=== PATIENT | male | born 1930 | race Caucasian/White ===

== ENCOUNTER 2017-11-14 22:10 | Inpatient (IN) ==
[2017-11-14 22:37] LABS: Basophils % 0.4 %; Eosinophils % 0.1 %; Hematocrit 40.6 % (37.5-50.1); Immature Granulocytes % 2.1 % (0-4); Lymphocytes # 0.4 K/mcL (0.6-4.6); Lymphocytes % 4.1 %; Mean Corpuscular Hemoglobin 26.3 pg (28.0-33.3); Mean Platelet Volume 9.3 fL (9.4-12.4); Monocytes # 0.6 K/mcL (0.0-1.3); Monocytes % 5.7 %; Neutrophils # 8.6 K/mcL (1.6-8.9); Platelet Count 204 K/mcL (140-400); Red Blood Count 4.95 M/mcL (4.19-5.50); Red Cell Distribution Width 15.7 % (11.5-14.5); Segmented Neutrophils % 87.6 %
[2017-11-14 22:59] LABS: Alanine Aminotransferase 7 Units/L (7-52); Albumin 3.4 g/dL (3.5-5.7); Albumin/Globulin Ratio 1.1 (1.1-2.2); Alkaline Phosphatase 232 Units/L (34-104); Aspartate Amino Transferase 10 Units/L (13-39); BUN/Creatinine Ratio 35 (6-26); Bilirubin,Total 0.7 mg/dL (0.3-1.0); Blood Urea Nitrogen 42 mg/dL (8-23); Calcium 10.6 mg/dL (8.6-10.3); Carbon Dioxide 30 mEq/L (23-29); Chloride 99 mEq/L (98-107); Globulin 3.2 g/dL (2.4-3.5); Glucose 125 mg/dL (70-105); Magnesium 1.7 mg/dL (1.6-2.6); Osmolality,Calculated 304 (280-300); Phosphorous 5.4 mg/dL (2.7-4.5); Potassium 4.3 mEq/L (3.5-5.1); Sodium 141 mEq/L (136-145); Total Protein 6.6 g/dL (6.4-8.9); Troponin I 0.03 ng/mL (< 0.04); eGFR For African Americans > 60 (> 60); eGFR For Non-African Americans 56 (> 60)
[2017-11-14 23:12] LABS: Thyroid Stimulating Hormone 2.982 mcIU/mL (0.340-5.600)
[2017-11-14 23:19] LABS: Bilirubin,Urine Negative (Negative); Blood,Urine Negative (Negative); Clarity,Urine Clear (Clear); Color,Urine Yellow (Yellow); Glucose,Urine (UA) Normal (Normal); Ketones,Urine Trace mg/dL (Negative); Leukocyte Esterase,Urine Negative (Negative); Nitrite,Urine Negative (Negative); Protein,Urine Negative (Neg-Trace); Specific Gravity,Urine 1.025 (1.010-1.025); Urobilinogen,Urine Normal (Normal)
[2017-11-15] MEDS ORDERED: Levofloxacin 750 MG/150 ML 750 MG/150 ML BAG IVPB ONE (00:13)
--- NOTE | 2017-11-15 00:46 | Emergency Department Note ---
Disposition Clinical Impression: Generalized weakness, Sacral decubitus ulcer, stage II Disposition: Admitted As Inpatient Condition: Fair Time of Disposition: 02:00 Weakness HPI - General Chief complaint: ED Weakness Stated complaint: weak Time Seen by Provider: 11/14/17 22:11 Source: patient, EMS Limitations: no limitations Nursing Notes Reviewed: Yes Vital Signs Reviewed: Yes - History of Present Illness HPI Narrative: Patient is a 87-year-old male who presents to [facility] ED with a chief complaint of generalized weakness. States his symptoms of been worsening over the last several weeks. Patient lives at home with 24-hour low- level care. His sons are present who states they are worried that he needs a higher level of care. He fell a couple weeks ago and was diagnosed with a pelvic fracture by his primary care physician. He now has a developing sacral decubitus ulcer. States this has not been seen by any physician yet. Patient has had a cough that has been worsening over the last several days. Denies any nausea, vomiting, fever or chills. No chest pain, difficulty breathing, abdominal pain, problems with urination or bowel movements. Patient is not on any home oxygen. Pt Subjective Complaint: generalized weakness/fatigue Onset (ago): week(s) Duration: gradually worsening Location: generalized Pain Scale: 0 Improves with: none Worsens with: none Associated symptoms: Denies: chest pain, dysuria, fever/chills, nausea/vomiting , shortness of breath - Related Data Home Medications Medication Instructions Recorded Confirmed Tramadol HCl [Ultram] 50 mg PO QID PRN 11/15/17 11/15/17 Allergies Allergy/AdvReac Type Severity Reaction Status Date / Time Penicillins Allergy Hives Verified 11/15/17 00:50 All systems ED: reviewed and negative except as stated. Past Medical History - Past Medical History Attestation: Yes The following information was validated with the patient. Source: patient Medical history: Reports: CHF, dementia (parkinsons), other - Social History Smoking Status: Unknown if ever smoked Smokeless Tobacco Status: No Alcohol use: Reports: none Drug use: Reports: none Physical Exam - General Limitations: no limitations General appearance: alert, in no apparent distress - Head Head exam: atraumatic, normocephalic, normal inspection - Eye Eye exam: Present: normal appearance, EOMI - ENT ENT exam: normal exam, normal oropharynx, mucous membranes moist - Neck Neck exam: Present: normal inspection, full ROM, trachea midline - Chest Chest inspection: Present: normal inspection, symmetric chest wall rise - Respiratory Respiratory exam: Present: normal lung sounds bilaterally - Cardiovascular Cardiovascular exam: Present: regular rate, normal rhythm, normal heart sounds - Abdominal Exam Abdominal exam: Present: soft, Non-Tender. Absent: tenderness, distention, guarding, rebound, rigidity - Extremities Exam Extremities exam: Present: normal inspection, full ROM. Absent: tenderness, pedal edema - Back Exam Back exam: Present: normal inspection, full ROM. Absent: tenderness - Neurological Exam Neurological exam: Present: alert, oriented X3 - Psychiatric Psychiatric exam: Present: normal affect, normal mood - Skin Skin exam: Present: warm, dry, intact, normal color Course Course Narrative: Patient seen and examined. Generalized weakness and concern for new developing sacral decubitus. I did examine the ulceration which looks like a stage II ulcer. The patient's symptoms of cough, a cardio pulmonary workup was initiated. CT of the head and chest x-ray ordered. GCS 15. - Reevaluation(s) Reevaluation #1: Lab work appears unremarkable. Chest x-ray shows some basilar infiltrates that along with his symptoms of recent cough, we will go ahead and treat as a pneumonia. Levaquin ordered. Since he has been more weak at home and has fallen and the sons are concerned about his level of care at home, we will go ahead and admit. Patient may need placement at a nursing care facility. I discussed with hospitalist who has accepted patient for admission. Time: 00:54 Vital Signs Temperature 98.0 F 11/14/17 22:11 Pulse Rate 76 11/14/17 22:11 Respiratory Rate 20 11/14/17 22:11 Blood Pressure 127/75 11/14/17 22:11 O2 Sat by Pulse Oximetry 100 11/14/17 22:11 Temperature 97.5 F L 11/15/17 02:55 Pulse Rate 84 11/15/17 02:55 Respiratory Rate 12 11/15/17 02:55 Blood Pressure 130/74 11/15/17 02:55 O2 Sat by Pulse Oximetry 94 11/15/17 02:55 Oxygen Delivery Oxygen Delivery Nasal Cannula Weakness - Medical Records Medical records reviewed: Yes I reviewed the patient's medical records. - Lab Data Lab results reviewed: Yes I reviewed the patient's lab results. Result diagrams: 11/14/17 22:25 11/14/17 22:25 Lab Results 11/14/17 11/14/17 11/14/17 Range/Units 22:25 22:25 22:25 WBC 9.8 (4.3-11.1) K/mcL RBC 4.95 (4.19-5.50) M/mcL Hgb 13.0 (12.9-16.9) g/dL Hct 40.6 (37.5-50.1) % MCV 82.0 L (83.0-100.0) fL MCH 26.3 L (28.0-33.3) pg MCHC 32.0 (31.6-35.5) g/dL RDW 15.7 H (11.5-14.5) % Plt Count 204 (140-400) K/mcL MPV 9.3 L (9.4-12.4) fL Immature Gran % 2.1 (0-4) % Seg Neutrophils % 87.6 % Lymphocytes % 4.1 % Monocytes % 5.7 % Eosinophils % 0.1 % Basophils % 0.4 % Neutrophils # 8.6 (1.6-8.9) K/mcL Lymphocytes # 0.4 L (0.6-4.6) K/mcL Monocytes # 0.6 (0.0-1.3) K/mcL Eosinophils # 0.0 (0.0-0.6) K/mcL Basophils # 0.0 (0.0-0.2) K/mcL Sodium 141 (136-145) mEq/L Potassium 4.3 (3.5-5.1) mEq/L Chloride 99 (98-107) mEq/L Carbon Dioxide 30 H (23-29) mEq/L BUN 42 H (8-23) mg/dL Creatinine 1.21 (0.70-1.30) mg/dL Est GFR ( Amer) > 60 (> 60) Est GFR (Non-Af Amer) 56 L (> 60) BUN/Creatinine Ratio 35 H (6-26) Glucose 125 H (70-105) mg/dL Calculated Osmolality 304 H (280-300) Lactic Acid 1.7 (0.5-2.2) mmol/L Calcium 10.6 H (8.6-10.3) mg/dL Phosphorus 5.4 H (2.7-4.5) mg/dL Magnesium 1.7 (1.6-2.6) mg/dL Total Bilirubin 0.7 (0.3-1.0) mg/dL AST 10 L (13-39) Units/L ALT 7 (7-52) Units/L Alkaline Phosphatase 232 H (34-104) Units/L Creatine Kinase 86 (30-223) Units/L Troponin I 0.03 (< 0.04) ng/mL B-Natriuretic Peptide (Less than 100) pg/mL Serum Total Protein 6.6 (6.4-8.9) g/dL Albumin 3.4 L (3.5-5.7) g/dL Globulin 3.2 (2.4-3.5) g/dL Albumin/Globulin Ratio 1.1 (1.1-2.2) Vitamin B12 (250-1100) pg/mL Folate (3.0-16.0) ng/mL TSH 2.982 (0.340-5.600) mcIU/mL Urine Color (Yellow) Urine Clarity (Clear) Urine pH (5.0-8.0) pH Units Ur Specific [place] (1.010-1.025) Urine Protein (Neg-Trace) mg/dL Urine Glucose (UA) (Normal) mg/dL Urine Ketones (Negative) mg/dL Urine Blood (Negative) Urine Nitrite (Negative) Urine Bilirubin (Negative) Urine Urobilinogen (Normal) mg/dL Ur Leukocyte Esterase (Negative) Ur Culture Indicated? (NO) 11/14/17 11/14/17 11/14/17 Range/Units 22:25 22:25 22:56 WBC (4.3-11.1) K/mcL RBC (4.19-5.50) M/mcL Hgb (12.9-16.9) g/dL Hct (37.5-50.1) % MCV (83.0-100.0) fL MCH (28.0-33.3) pg MCHC (31.6-35.5) g/dL RDW (11.5-14.5) % Plt Count (140-400) K/mcL MPV (9.4-12.4) fL Immature Gran % (0-4) % Seg Neutrophils % % Lymphocytes % % Monocytes % % Eosinophils % % Basophils % % Neutrophils # (1.6-8.9) K/mcL Lymphocytes # (0.6-4.6) K/mcL Monocytes # (0.0-1.3) K/mcL Eosinophils # (0.0-0.6) K/mcL Basophils # (0.0-0.2) K/mcL Sodium (136-145) mEq/L Potassium (3.5-5.1) mEq/L Chloride (98-107) mEq/L Carbon Dioxide (23-29) mEq/L BUN (8-23) mg/dL Creatinine (0.70-1.30) mg/dL Est GFR ( Amer) (> 60) Est GFR (Non-Af Amer) (> 60) BUN/Creatinine Ratio (6-26) Glucose (70-105) mg/dL Calculated Osmolality (280-300) Lactic Acid (0.5-2.2) mmol/L Calcium (8.6-10.3) mg/dL Phosphorus (2.7-4.5) mg/dL Magnesium (1.6-2.6) mg/dL Total Bilirubin (0.3-1.0) mg/dL AST (13-39) Units/L ALT (7-52) Units/L Alkaline Phosphatase (34-104) Units/L Creatine Kinase (30-223) Units/L Troponin I (< 0.04) ng/mL B-Natriuretic Peptide 312 H (Less than 100) pg/mL Serum Total Protein (6.4-8.9) g/dL Albumin (3.5-5.7) g/dL Globulin (2.4-3.5) g/dL Albumin/Globulin Ratio (1.1-2.2) Vitamin B12 > 1500 H (250-1100) pg/mL Folate 7.2 (3.0-16.0) ng/mL TSH (0.340-5.600) mcIU/mL Urine Color Yellow (Yellow) Urine Clarity Clear (Clear) Urine pH 6.0 (5.0-8.0) pH Units Ur Specific [place] 1.025 (1.010-1.025) Urine Protein Negative (Neg-Trace) mg/dL Urine Glucose (UA) Normal (Normal) mg/dL Urine Ketones Trace H (Negative) mg/dL Urine Blood Negative (Negative) Urine Nitrite Negative (Negative) Urine Bilirubin Negative (Negative) Urine Urobilinogen Normal (Normal) mg/dL Ur Leukocyte Esterase Negative (Negative) Ur Culture Indicated? NO (NO) - Radiology Data Radiology results reviewed: Yes I reviewed the patient's radiology results. Chest X-Ray 11/14/17 22:14 IMPRESSION: In this patient with cardiomegaly, perihilar and bibasilar ground-glass opacities suggests developing pulmonary edema. Viral infection may also be considered clinically. D/ / Vince Del Rio MD / Vince Del Rio MD Interpreting Provider: Vince Del Rio MD Head CT 11/14/17 22:15 IMPRESSION: No acute intracranial abnormality. Left supraorbital soft tissue swelling-query recent trauma. D/ / Riaz Knowles MD / Riaz Knowles MD Interpreting Provider: Riaz Knowles MD - EKG Data EKG attestation: Yes I reviewed and interpreted this EKG. EKG results narrative: EKG done at 2221 shows normal sinus rhythm with a rate of [address] elevation or depression. Inverted T waves noted in leads 3 and aVF. Prominent Q waves noted in lead 3 but does appear new from prior EKG done 06/20/2014. Attestation Statement - Attestation Attestation: I examined this patient and my medical decision-making was reviewed with the Resident Physician. I agree with the documented findings, disposition and treatment plan as described except to the extent set forth below. Findings consistent with weakness. This is in the setting of recent trauma that had previous evaluation. The family cannot adequately care for the patient. He has having declining health. Plan to admit for further management of weakness in the setting of previous trauma.
[2017-11-15] MEDS ORDERED: Naloxone 0.4 MG/ML INJ IVP PRN (01:26)
[2017-11-15] MEDS ORDERED: traMADol 50 MG TABLET PO PRN (01:27)
[2017-11-15 01:56] LABS: Creatine Kinase 86 Units/L (30-223)
[2017-11-15] MEDS ORDERED: 0.9 % Sodium Chloride 1,000 ML IVC SCH (02:00)
--- NOTE | 2017-11-15 02:03 | Internal Med History&Physical ---
Date of Encounter: 11/15/17 Time of Encounter: 01:59 Internal Medicine - H&P: HPI Chief complaint: weakness Admitted From: Emergency Dept Plans for Post Hospital Care: Home History of present illness: Mr. Dowling is a 87 year old male with history of parkinson's, chronic back pain with a pain pump, mild CHF per his sons, recent pelvic fracture diagnosed by his PCP who presents with weakness for a couple of weeks. The patient is accompanied by his 2 sons. He lives alone but gets friends and family who see him almost on a consistent basis around the clock. He has been having a cough for a couple of weeks that is dry. No fever. He has been generally weak and sleeping more than usual. He had a fall a couple of weeks ago and was diagnosed with a pelvic fracture by his pcp that is being managed conservatively. He has been less active since. We dont have imaging of this here. The sons tell me he has mild CHF and sees Dr. Deras but no records on file here I can find in [employer]. In the ED he was put on 3L but was never hypoxic and I confirmed with the ED staff. His laboratory work up was with signs of dehydration. UA negative. He had a CXR that mentioned possibly opacity or CHF. He was given IV levaquin in the ED. No headach, blurry vision, fever, chills, nausea, vomiting, chest pain, abdominal pain, diarrhea, constipation, urinary symptoms, or neurological symptoms. Past Med Surg Social Fam HX - Past Medical History Medical history: CHF, dementia - Past Surgical History Surgical History: non-contributory - Social History Smoking Status: Unknown if ever smoked Smokeless Tobacco Status: No Alcohol use: unknown Drug use: unknown - Family History Mother History Unknown: Yes Internal Medicine - H&P: Meds Aspirin/Calcium Carbonate/Mag [Aspirin Buffered 325 mg Tab] 325 mg PO DAILY 01/26 [History] Carbidopa/Levodopa [Carbidopa-Levodopa 25-250 Tab] 1 each PO DAILY 11/15/17 [ History] Gabapentin [Neurontin] 300 mg PO HS 11/15/17 [History] Isosorbide DInitrate [Isosorbide Dinitrate] 30 mg PO DAILY 11/15/17 [History] Metoprolol [Lopressor] 25 mg PO DAILY 11/15/17 [History] Omeprazole [PriLOSEC] 20 mg PO DAILY 11/15/17 [History] Ropinirole HCl [Requip] 2 mg PO TID 11/15/17 [History] Sucralfate [Carafate] 1 gm PO TID 11/15/17 [History] Tramadol HCl [Ultram] 50 mg PO QID PRN 11/15/17 [History] 3 Allergy/AdvReac Type Severity Reaction Status Date / Time Penicillins Allergy Hives Verified 11/15/17 00:50 All Systems PM: A 10-system review of systems was performed and is negative for pertinent findings except as documented above in the HPI. Review of systems: all systems reviewed are negative except for as mentioned above - Constitutional Vitals: Temp Pulse Resp BP Pulse Ox 98.0 F 76 16 144/73 100 11/14/17 22:11 11/15/17 00:10 11/15/17 00:10 11/15/17 00:10 11/15/17 00:10 Exam: GEN: NAD HEENT: AT, NC, No cyanosis, oral mucosa is moist, No JVD Lymphatics: No lymphadenoapthy Eyes: Extrocular muscles intact, anicteric CVS:RRR. S1, S2, No m/r/g RESP: CTAB ABD: Soft, NT, ND, +BS EXT: ankle and foot edema bilaterally, No rashes, 2+ DP NEURO: Nonfocal, CN II-XII intact, No focal motor or sensory deficits Psych: Cooperative, Not anxious or depressed Internal Med - H&P Results - Labs CBC & Chem 7: 11/14/17 22:25 11/14/17 22:25 - Assessment and plan (1) Generalized weakness Current Visit: Yes Status: Acute Assessment and plan: Patient has had a fall a couple of weeks back and has had decreased ambulation since then. He seems lethargic and dehydrated clinically. Will get PT/OT to see him and family is ok with placement. TSH is normal. check B12 and folate. Labs are indicative of dehydration as his creainine, WBC, sodium, calcium , and some liver enzymes are all above baseline. Will hydrate the patient gently with 1 L only and check labs later today or tomorrow. His BNP is mildy elevated and has a read of CHF on CXR but he is dehydrated clinically. He is not hypoxic. (2) Bronchitis Current Visit: Yes Status: Acute Assessment and plan: Patient was started on levaquin down in the ED. Will treat empirically with levaquin orally. Patient is afebrile and has no leukocytosis, although his WBC count is above baseline. (3) CHF (congestive heart failure) Current Visit: Yes Status: Acute Assessment and plan: per his son he has mild heart failure. The patient is not hypoxic. He does have a BNP that is mildly elevated at 312. His CXR is questionable with vascular congestion vs opacity. I will resume the patient's lasix and heart failure meds once verified. No echo on file but will obtain one. He was put on 3 L in the ED for whatever reason but was never hypoxic. I weaned him off O2 in the ED and his O2 sats stayed close to 100 on RA. Qualifiers: Heart failure type: unspecified Heart failure chronicity: unspecified Qualified Code(s): I50.9 - Heart failure, unspecified (4) Parkinson disease Current Visit: Yes Status: Acute Assessment and plan: conservative management. PT/OT. (5) DVT prophylaxis Current Visit: Yes Status: Acute Assessment and plan: heparin SQ - Time Spent With Patient Total time spent is greater than 50% in coordination of care (as documented) at patient's floor/unit and/or counseling patient:
[2017-11-15 02:36] LABS: Folate 7.2 ng/mL (3.0-16.0)
[2017-11-15 02:39] LABS: Vitamin B12 > 1500 pg/mL (250-1100)
[2017-11-15] MEDS: *HR* Heparin 5,000 UNIT/ML VIAL SQ SCH ×3 (04:49→21:07)
[2017-11-15] MEDS: Sucralfate 1 GM TABLET PO SCH ×2 (11:57→15:03)
[2017-11-15] MEDS: Aspirin Enteric Coated 325 MG Tablet PO SCH (12:05)
--- NOTE | 2017-11-15 12:22 | Event Note ---
Date of Encounter: 11/15/17 Time of Encounter: 12:20 Patient seen and evaluated at the bedside. Patient has a history of Parkinson' s disease and recurrent falls with pelvic surgery recently who is undergoing conservative management who presents with worsening weakness, dehydration he has been found to have evidence of dehydration on his labs and some haziness on his chest x-ray which is concerning for community-acquired pneumonia/bronchitis for which she is received Levaquin. Plan is to give him IV fluids for hydration and continue antibiotics. Physical therapy and occupational therapy will also be evaluating him. I personally discussed his plan of care with his grandson who was at the bedside the patient is completely agreeable to the idea of going to a rehabilitation should there be a need to based on assessment. Off note, patient's medication reconciliation needs to be carefully looked at and both myself as well as nurse will be trying to get more input as far as his Sinemet dosing is concerned. He is supposed to be on 25/250 of Sinemet once a day-seems to be in appropriate dosing I have asked the nurses and the patient's family to clarify this does with the outpatient primary care physician and we will be reconciling this very shortly. I am wondering if the improper Sinemet dosing is also a culprit in his symptoms. We will monitor closely. Plan of care discussed with RN and grandson at bedside
[2017-11-15] MEDS: rOPINIRole 1 MG TABLET PO SCH ×2 (15:03→21:08)
[2017-11-15] MEDS: *HR* OxyCODONE/APAP 5/325 TABLET PO PRN (16:50)
[2017-11-15] MEDS ORDERED: *HR* FentaNYL (PF) 100 MCG/2 ML VIAL IVP ONE (20:57)
[2017-11-15] MEDS: Gabapentin 300 MG CAPSULE PO SCH (21:07)
[2017-11-15] MEDS: Carbidopa/Levodopa 25/250 TABLET PO SCH (21:08)
[2017-11-16] MEDS: *HR* OxyCODONE/APAP 5/325 TABLET PO PRN (02:54)
[2017-11-16] MEDS: *HR* Heparin 5,000 UNIT/ML VIAL SQ SCH ×3 (05:19→21:38)
[2017-11-16] MEDS: rOPINIRole 1 MG TABLET PO SCH ×3 (08:01→21:37)
[2017-11-16] MEDS: Sucralfate 1 GM TABLET PO SCH ×3 (08:02→17:05)
[2017-11-16] MEDS: Carbidopa/Levodopa 25/250 TABLET PO SCH ×2 (08:02→21:37)
[2017-11-16] MEDS: Aspirin Enteric Coated 325 MG Tablet PO SCH (08:02)
[2017-11-16] MEDS ORDERED: Carbidopa/Levodopa 25/250 TABLET PO SCH (09:00)
[2017-11-16] MEDS ORDERED: ISOSORBIDE DINITRATE 30 MG PO SCH (09:00)
[2017-11-16 10:36] LABS: Alanine Aminotransferase < 3 Units/L (7-52); Albumin 2.8 g/dL (3.5-5.7); Alkaline Phosphatase 185 Units/L (34-104); Aspartate Amino Transferase 10 Units/L (13-39); BUN/Creatinine Ratio 38 (6-26); Bilirubin,Total 0.8 mg/dL (0.3-1.0); Blood Urea Nitrogen 37 mg/dL (8-23); Calcium 10.7 mg/dL (8.6-10.3); Carbon Dioxide 30 mEq/L (23-29); Chloride 102 mEq/L (98-107); Globulin 2.8 g/dL (2.4-3.5); Glucose 101 mg/dL (70-105); Osmolality,Calculated 301 (280-300); Potassium 4.1 mEq/L (3.5-5.1); Sodium 141 mEq/L (136-145); Total Protein 5.6 g/dL (6.4-8.9); eGFR For African Americans > 60 (> 60); eGFR For Non-African Americans > 60 (> 60)
--- NOTE | 2017-11-16 14:13 | Internal Med Progress Note ---
Date of Encounter: 11/16/17 Time of Encounter: 10:00 - Assessment and plan (1) Hypoxia Current Visit: Yes Status: Acute Assessment and plan: Unclear etiology at this point. Patient is being treated for early evidence of comminuted acquired pneumonia/bronchitis with antibiotics. I will continue the antibiotics for now and monitor closely. I have discussed with the nurse and given the clinical appearance at this very point we will try to wean him off the oxygen. If we are unable to wean him I will consider repeating a BNP as well as a chest x-ray. His extreme deconditioning could also be contributing to hypoxia in terms of decreased lung expansion (2) Generalized weakness Current Visit: Yes Status: Acute Assessment and plan: Patient has had a fall a couple of weeks back and has had decreased ambulation since then. He seems lethargic and dehydrated clinically. Will get PT/OT to see him and family is ok with placement. TSH is normal. check B12 and folate. Labs are indicative of dehydration as his creainine, WBC, sodium, calcium , and some liver enzymes are all above baseline. Will hydrate the patient gently with 1 L only and check labs later today or tomorrow. His BNP is mildy elevated and has a read of CHF on CXR but he is dehydrated clinically. He is not hypoxic. 11/16/2017-creatinine slowly improving. He is clinically euvolemic at this time. I will hold off on giving him extra fluids unless indicated or creatinine starts to trend back up. His initial chest x-ray did show some beginning of infiltrates versus fluid overload and I do not want to push more fluids unless absolutely needed. He appears clinically to be improving but does have unexplained hypoxia at this point which happened last night. I believe this is more likely deconditioning event than anything else. I will make sure he is on VTE prophylaxis He does not appear to be overall gaining some of his energy back and his overall demeanor seems to be more active. This could also potentially be because his Parkinson's medications have been adjusted. RN verified with the patient's primary care physician office he was indeed on twice a day dosing of Sinemet which has been adjusted. There is also a possibility that we could still go up on the Sinemet dosing but I am hesitant to make that adjustment in house. I will leave it to the primary care physician upon discharge. The extreme deconditioning and the recent pelvic fracture he has been evaluated by physical therapy and who are recommending a fci facility. Case management has been involved and the patient is agreeable and starting the discussion. (3) Bronchitis Current Visit: Yes Status: Acute Assessment and plan: Will treat empirically with levaquin orally. I would recommend total of 5 day course (4) CHF (congestive heart failure) Current Visit: Yes Status: Acute Assessment and plan: per his son he has mild heart failure. The patient is not hypoxic. He does have a BNP that is mildly elevated at 312. His CXR is questionable with vascular congestion vs opacity. I will resume the patient's lasix and heart failure meds once verified. No echo on file but will obtain one. He was put on 3 L in the ED for whatever reason but was never hypoxic. I weaned him off O2 in the ED and his O2 sats stayed close to 100 on RA. 11/16/2017- was hypoxic last night and improved oxygenation after being placed on 2 L. Unclear etiology. We will check a chest x-ray and a need to check a BNP as well and clinically does not appear to be in heart failure. I am hesitant to give him further fluids because of this questionable history of heart failure in the background. Consider 2-D echo if needed to further quantify heart failure type Qualifiers: Heart failure type: unspecified Heart failure chronicity: unspecified Qualified Code(s): I50.9 - Heart failure, unspecified (5) Parkinson disease Current Visit: Yes Status: Acute Assessment and plan: conservative management. PT/OT. Dose adjustment of Sinemet performed with clinical improvement seen (6) DVT prophylaxis Current Visit: Yes Status: Acute Assessment and plan: heparin SQ (7) Sacral decubitus ulcer, stage II Current Visit: Yes Status: Acute - Time Spent With Patient Total time spent is greater than 50% in coordination of care (as documented) at patient's floor/unit and/or counseling patient: Greater than 35 minutes - Subjective Interval history: Patient denies any shortness of breath, chest pain. Still feels extremely weak. Today he looks to be much more awake and alert and is more talkative and is smiling sitting up in the chair. He tells me that last night he had a drop in his oxygenation and he was placed on 2 L of oxygen. At this point he denies feeling short of breath and is able to complete sentences while talking to me - Constitutional Vitals: Temp Pulse Resp BP Pulse Ox 96.4 F L 71 14 142/77 98 11/16/17 11:04 11/16/17 11:04 11/16/17 11:04 11/16/17 11:04 11/16/17 11:04 Exam: GENERAL: Alert, moderate distress, cooperative OROPHARYNX: Lips, mucosa, and tongue normal. Teeth and gums normal. Oropharynx normal. NECK: No jugulovenous distention, No carotid bruits, Carotid pulse normal contour, Supple LUNGS: scattered rhonchi. poor breathing effort overall. CARDIAC: Normal S1 and S2; no rubs, murmurs, or gallops ABDOMEN: Abdomen soft, non-tender, BS normal, No masses or organomegaly EXTREMITIES: Extremities normal, no deformities, edema, clubbing or skin discoloration. Good capillary refill., No ulcers NEURO: Gait not tested. reflexes symmetric BLE/ BUE. Slow movements consistent w PD PULSES: 2+ radial, 2+ carotid Rest of the exam is non contributory Internal Medicine: Result - Labs CBC & Chem 7: 11/14/17 22:25 11/16/17 10:05 Labs: BMP 11/16/17 10:05 Sodium 141 Potassium 4.1 Chloride 102 Carbon Dioxide 30 H BUN 37 H Creatinine 0.97 Glucose 101 Calcium 10.7 H Liver Function 11/16/17 Range/Units 10:05 Total Bilirubin 0.8 (0.3-1.0) mg/dL AST 10 L (13-39) Units/L ALT < 3 L (7-52) Units/L Alkaline Phosphatase 185 H (34-104) Units/L Albumin 2.8 L (3.5-5.7) g/dL - Impressions Impressions Echocardiogram 11/15/17 02:03 Impressions: LVEF 50%. Mild basal inferior wall hypokinesis. Mild left ventricular diastolic dysfunction. RV is not well evaluated. No significant valvular dysfunction. No pulmonary hypertension. Left Ventricular Wall Motion: Rest Echo Findings The basal inferior wall was hypokinetic. All other wall segments showed normal motion. Findings: Study Quality * Technically sub-optimal due to clinical status - patient unable to be well positioned for procedure. ECG Findings * Normal sinus rhythm. Aorta * Normally sized aortic root. Left Ventricle * LVEF 50%. * Normal LV chamber size, wall thickness and function. * Mild left ventricular diastolic dysfunction. Right Ventricle * RV is not well evaluated. Left Atrium * Normal left atrial size. Right Atrium * Normal right atrial size. Aortic Valve * No aortic regurgitation. * Aortic valve not well visualized. * No aortic stenosis. Mitral Valve * Normal mitral valve structure. * No mitral regurgitation. * No mitral stenosis. Tricuspid Valve * Tricuspid valve not well visualized. * Trace tricuspid regurgitation. * Estimated RA pressure is 3 mmHg. * Estimated RVSP is 24 mmHg. * No pulmonary hypertension. Pulmonic Valve * Pulmonic valve is not well visualized. * No pulmonic stenosis. * No pulmonic regurgitation. Pulmonary Artery * Pulmonary artery not well visualized. Pericardium * There is no pericardial effusion present. IVC * Normal IVC dimensions and inspiratory collapse. Consult Discharge Plan - Plan Referrals: Olaf Justice DO [Primary Care Provider] -
--- NOTE | 2017-11-16 16:33 | Electrocardiograph Report ---
[address] [address] Test Date: 2017-11-14 Pat Name: Frantz Dowling Department: 102 Room: 3B16 Gender: M Recreation Technician: Magdy : [id number] Requested By: Jayshree Zhu Order Number: [id number] Reading MD: Smita Uribe Measurements Intervals [place] Rate: 78 P: 14 MD: 131 QRS: -14 QRSD: 110 T: -28 QT: 376 QTc: 409 Interpretive Statements SINUS RHYTHM Electronically Signed On 11-16-2017 16:31:55 EDT by Smita Uribe
[2017-11-16] MEDS: Gabapentin 300 MG CAPSULE PO SCH (21:38)
[2017-11-17] MEDS: *HR* Heparin 5,000 UNIT/ML VIAL SQ SCH ×3 (05:06→21:20)
[2017-11-17] MEDS ORDERED: *HR* Dextrose 50 % in Water (Syg) 50 ML SYRINGE ONE (08:57)
[2017-11-17] MEDS: levoFLOXacin 750 MG TABLET PO SCH (11:36)
[2017-11-17] MEDS: Aspirin Enteric Coated 325 MG Tablet PO SCH (11:36)
[2017-11-17] MEDS: rOPINIRole 1 MG TABLET PO SCH ×3 (11:36→20:10)
[2017-11-17] MEDS: Carbidopa/Levodopa 25/250 TABLET PO SCH ×2 (11:36→20:10)
[2017-11-17] MEDS: Sucralfate 1 GM TABLET PO SCH ×3 (11:36→14:40)
--- NOTE | 2017-11-17 12:17 | Internal Med Progress Note ---
<LizzyscarlettdanieRavi guerin - Last Filed: 11/17/17 13:19> Date of Encounter: 11/17/17 Time of Encounter: 09:30 - Assessment and plan (1) Hypoxia Current Visit: Yes Status: Acute Assessment and plan: Pt. being treated w/abx for bronchitis/suspected CAP. Continue levaquin. Pt. required O2 via NC last night d/t SpO2 of 91%. Increased to 3L today w/SpO2 of 92%. ABG ordered d/t current AMS. Continue to monitor respiratory status closely. (2) Generalized weakness Current Visit: Yes Status: Acute Assessment and plan: Pt. hard to rouse on exam w/decreased mentation compared to yesterday. Will continue to monitor pt. Falls/safety precautions ordered. (3) Bronchitis Current Visit: Yes Status: Acute Assessment and plan: Acute bronchitis. Continue 750 mg PO Q48HR for empiric tx. Pt. afebrile @ 97.6, HR 69, RR 14, BP 126/78, SpO2 92% on 3L. Continue to monitor pt. and f/u labs. (4) CHF (congestive heart failure) Current Visit: Yes Status: Chronic Assessment and plan: Hx of chronic CHF. BNP elevated at 312 on admission. CXR yesterday showed bilateral airspace disease and pleural effusions with fluid tracking into the right major fissure. These findings are consistent with edema. Pts. lasix continued. If AMS does not resolve, will convert to IVP lasix. Pt. placed on 2L last night d/t SpO2 of 91%. Changed to 3L today. Echocardiogram from 11/15/17 shows LVEF of 50%, mild basal inferior wall hypokinesis, mild left ventricular diastolic dysfunction, RV is not well evaluated, no significant valvular dysfunction, and no pulmonary hypertension. Will place pt. on telemetry d/t AMS. Qualifiers: Heart failure type: unspecified Heart failure chronicity: unspecified Qualified Code(s): I50.9 - Heart failure, unspecified (5) Parkinson disease Current Visit: Yes Status: Chronic Assessment and plan: Hx of chronic Parkinson's disease. Pts. dosing of Sinemet confirmed w/Pharmacy @ 25/250 BID. Possibility of increasing Sinemet dosing further when AMS resolves. PT/OT recommendation for transition to SNF post-discharge. Continue to monitor pt. d/t new onset of AMS. (6) Sacral decubitus ulcer, stage II Current Visit: Yes Status: Chronic Assessment and plan: Hx of chronic decubitus of the sacrum, currently stage II. Wound Care consult ordered for recommendations for daily wound care. Continue to monitor. (7) DVT prophylaxis Current Visit: Yes Status: Acute Assessment and plan: Continue heparin 5,000 units SQ Q8 for DVT prophylaxis. Monitor pt. for signs of bleeding. (8) Acute metabolic encephalopathy Current Visit: Yes Status: Acute Assessment and plan: Acute suspected metabolic encephalopathy of unknown etiology (hypoxia versus infection process versus thyroid). Pt. is altered as compared to yesterday when it was noted that he was sitting in chair, conversational, and able to use bedside commode w/assistance. O2 increased to 3L. ABG ordered. CT of the head/ brain today shows left frontal scalp soft tissue swelling but no acute intracranial abnormality and diffuse cerebral atrophy with chronic small vessel ischemic disease. Left frontal scalp swelling d/t fall sustained pre-admission which resulted in pelvic fx. TSH and Free T4 ordered. CBC and BMP ordered which shows increasing calcium level of 11.1 after initial IV fluids. IV fluids used judiciously d/t CHF dx. Nephrology consult ordered. Calcitonin and PTH ordered. UA w/reflex micro and culture ordered. Continuous cardiac telemetry added. Falls /safety precautions. Continue to monitor pt. and f/u labs closely. - Time Spent With Patient Total time spent is greater than 50% in coordination of care (as documented) at patient's floor/unit and/or counseling patient: Greater than 35 minutes - Subjective Interval history: Pt. is difficult to rouse on exam at bedside today. Leaning to the left in bed and moaning. When re-positioning pt. w/nurse in bed, pt. mentions shoulder pain. Pt. is able to squeeze fingers w/equal bilateral strength. Opened pts. eyes manually to assess pupils which were equal and reactive. Pt. moves LEs but is unable to follow command to raise them. Previous report from yesterday states that pt. was in chair and conversational, alert, and able to use bedside commode w/assistance. Drastic change in mentation since yesterday. - Constitutional Vitals: Temp Pulse Resp BP Pulse Ox 97.6 F 68 14 123/78 93 11/17/17 06:56 11/17/17 09:27 11/17/17 09:27 11/17/17 09:27 11/17/17 09:27 General appearance: Present: A&O X 0, mild distress - Head Head exam: Present: atraumatic Additional comments: Pt. has area of swelling on left forehead most likely from fall sustained prior to admission which resulted in pelvic fx. - Eye Eye exam: Present: PERRL Pupils: Present: normal accommodation, PERRL - ENT ENT exam: Present: normal exam - Neck Neck exam general surgery: Present: normal inspection - Respiratory Respiratory exam: Present: CTAB. Absent: accessory muscle use, rales, rhonchi, wheezes - Cardiovascular Cardiovascular exam: Present: RRR, +S1, +S2. Absent: diastolic murmur, gallop, rubs, systolic murmur - Rectal Rectal exam: Present: deferred - Additional comments: exam deferred. - Extremities Exam Extremities exam: Present: warm, radial pulses palpable and symmetrical. Absent : calf tenderness, cyanotic, pedal edema - Neurological Exam Neurological exam: Present: altered Internal Medicine: Result - Labs CBC & Chem 7: 11/17/17 12:19 11/17/17 12:19 - Impressions Impressions Chest X-Ray 11/16/17 14:21 IMPRESSION: Bilateral airspace disease and pleural effusions with fluid tracking into the right major fissure. These findings are consistent with edema. Hiatal hernia. D/ / Albino Lopze / Albino Lopez Interpreting Provider: Albino Lopez Head CT 11/17/17 10:28 IMPRESSION: 1. Left frontal scalp soft tissue swelling but no acute intracranial abnormality. 2. Diffuse cerebral atrophy with chronic small vessel ischemic disease. D/ / Aroldo Martinez MD / Aroldo Martinez MD Interpreting Provider: Aroldo Martinez MD - Diagnostic Studies CT scan - head Additional comments: Impressions Head CT 11/17/17 10:28 IMPRESSION: 1. Left frontal scalp soft tissue swelling but no acute intracranial abnormality. 2. Diffuse cerebral atrophy with chronic small vessel ischemic disease. D/ / Aroldo Martinez MD / Aroldo Martinez MD Interpreting Provider: Aroldo Martinez MD Chest x-ray Additional comments: Impressions Chest X-Ray 11/16/17 14:21 IMPRESSION: Bilateral airspace disease and pleural effusions with fluid tracking into the right major fissure. These findings are consistent with edema. Hiatal hernia. D/ / Albino Lopez / Albino Lopez Interpreting Provider: Albino Lopez Consult Discharge Plan - Plan Referrals: Olaf Justice DO [Primary Care Provider] - <Nitza Eng - Last Filed: 11/17/17 13:43> Date of Encounter: 11/17/17 - Assessment and plan (1) Generalized weakness Current Visit: Yes Status: Acute (2) Bronchitis Current Visit: Yes Status: Acute (3) CHF (congestive heart failure) Current Visit: Yes Status: Chronic Qualifiers: Heart failure type: unspecified Heart failure chronicity: unspecified Qualified Code(s): I50.9 - Heart failure, unspecified (4) Parkinson disease Current Visit: Yes Status: Chronic (5) DVT prophylaxis Current Visit: Yes Status: Acute (6) Sacral decubitus ulcer, stage II Current Visit: Yes Status: Chronic (7) Hypoxia Current Visit: Yes Status: Acute (8) Acute metabolic encephalopathy Current Visit: Yes Status: Acute - Time Spent With Patient Total time spent is greater than 50% in coordination of care (as documented) at patient's floor/unit and/or counseling patient: - Constitutional Vitals: Temp Pulse Resp BP Pulse Ox 97.6 F 68 14 123/78 93 11/17/17 06:56 11/17/17 09:27 11/17/17 09:27 11/17/17 09:27 11/17/17 09:27 Internal Medicine: Result - Labs CBC & Chem 7: 11/17/17 12:19 11/17/17 12:19 Labs: Short CBC 11/17/17 Range/Units 12:19 WBC 8.8 (4.3-11.1) K/mcL Hgb 11.6 L (12.9-16.9) g/dL Hct 35.2 L (37.5-50.1) % Plt Count 130 L (140-400) K/mcL Neutrophils # 7.5 (1.6-8.9) K/mcL BMP 11/17/17 12:19 Sodium 139 Potassium 3.7 Chloride 101 Carbon Dioxide 32 H BUN 35 H Creatinine 0.97 Glucose 101 Calcium 11.1 H - Impressions Impressions Chest X-Ray 11/16/17 14:21 IMPRESSION: Bilateral airspace disease and pleural effusions with fluid tracking into the right major fissure. These findings are consistent with edema. Hiatal hernia. D/ / Albino Lopez / Albino Lopez Interpreting Provider: Albino Lopez Head CT 11/17/17 10:28 IMPRESSION: 1. Left frontal scalp soft tissue swelling but no acute intracranial abnormality. 2. Diffuse cerebral atrophy with chronic small vessel ischemic disease. D/ / Aroldo Martinez MD / Aroldo Martinez MD Interpreting Provider: Aroldo Martinez MD - Attending Attestation Pt seen and examined at bedside . I personally discussed the case and managment with the STANDARD MACHINE STITCHER and participated in tran components of A/P Patient is drowsy since this AM and hard to arouse. His VS are stable except mild O2 requirement. Latest CXR showed some fluid congestion for which he did get lasix and has been urinating well. on neuro eval, he is able to follow few commands like manager analysis holding and does his equally on both sides. He moves his legs symmetrically and pupils are smaller but bilaterally reactive We did do a CT brain non contrast that did not show any new CVA ( pretest prob was low) I have held gabapentin and his last opiate dosing was yesterday AM. He did perk up a little bit w narcan Review of his labs - done with STANDARD MACHINE STITCHER showed hypercalcemia which is concerning and getting worse - I am hesitent to give him fluids given CHF history and increasing O2 requirement but have reached out and consulted Nephrology and personally spoke to them as well. 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
[2017-11-17 12:35] LABS: Basophils % 0.3 %; Eosinophils % 0.3 %; Hematocrit 35.2 % (37.5-50.1); Hemoglobin 11.6 g/dL (12.9-16.9); Immature Granulocytes % 2.7 % (0-4); Lymphocytes # 0.4 K/mcL (0.6-4.6); Lymphocytes % 4.2 %; Mean Corpuscular Volume 82.1 fL (83.0-100.0); Mean Platelet Volume 10.6 fL (9.4-12.4); Monocytes # 0.7 K/mcL (0.0-1.3); Monocytes % 7.8 %; Neutrophils # 7.5 K/mcL (1.6-8.9); Platelet Count 130 K/mcL (140-400); Red Blood Count 4.29 M/mcL (4.19-5.50); Red Cell Distribution Width 15.8 % (11.5-14.5); Segmented Neutrophils % 84.7 %
[2017-11-17 12:53] LABS: BUN/Creatinine Ratio 36 (6-26); Blood Urea Nitrogen 35 mg/dL (8-23); Calcium 11.1 mg/dL (8.6-10.3); Carbon Dioxide 32 mEq/L (23-29); Chloride 101 mEq/L (98-107); Glucose 101 mg/dL (70-105); Osmolality,Calculated 296 (280-300); Potassium 3.7 mEq/L (3.5-5.1); Sodium 139 mEq/L (136-145); eGFR For African Americans > 60 (> 60); eGFR For Non-African Americans > 60 (> 60)
[2017-11-17 13:07] LABS: Thyroid Stimulating Hormone 1.652 mcIU/mL (0.340-5.600)
[2017-11-17 13:53] LABS: ABG Base Excess 9 mEq/L (-2 to 3); ABG HCO3 34 mEq/L (21-27); ABG Oxygen Saturation 97 % (95-98); ABG PCO2 49 mmHg (35-45); ABG PH 7.45 pH Units (7.32-7.45); ABG PO2 83 mmHg (85-104); ABG TCO2 36 mEq/L (20-26)
--- NOTE | 2017-11-17 14:06 | Nephrology Consult Note ---
Date of Encounter: 11/17/17 Time of Encounter: 13:59 Assessment and Plan (1) Hypercalcemia Current Visit: Yes Status: Acute PTH, Vitmain D and urine Calcium ordered by hospitalist, awaiting results. Will order fluids. GFR > than 60 and Scr is 0.97. Will trend Calcium. (2) Acute metabolic encephalopathy Current Visit: Yes Status: Acute Appears to be worsening due to previous records. Per primary team. (3) Bronchitis Current Visit: Yes Status: Acute Per primary team. (4) Sacral decubitus ulcer, stage II Current Visit: Yes Status: Chronic Continue q2 hour turns and repositioning. History of Present Illness - Reason for Consult Consult date: 11/17/17 (Hypercalcemia) - Chief Complaint weakness - History of Present Illness Mr. Dowling presented to the ED with weakness on 11/14/17. He lives at home with "24 hour home low skill level home care" His sons were with him in ED and per the notes they are concerned that he needs more skilled care and is continuing to deteriorate. He did fall a couple weeks ago, and has a sacral ulcer. PMH: CHF and dementia (Parkinsons). No family at bedside, per the old records has not ever seen a mechanical systems engineer or had kidney issues. Per the records patient was more alert, but upon examination he was hard to arouse. Has since become incontinent of urine. ABG in progress. ROS will be limited due to mentation, but will look at ED records. Past Med Surg Social Fam HX - Past Medical History Medical history: CHF, dementia - Past Surgical History Surgical History: non-contributory - Social History Smoking Status: Unknown if ever smoked Smokeless Tobacco Status: No Alcohol use: unknown Drug use: unknown - Family History Mother History Unknown: Yes Medications and Allergies Aspirin/Calcium Carbonate/Mag [Aspirin Buffered 325 mg Tab] 325 mg PO DAILY 01/26 [History] Carbidopa/Levodopa [Carbidopa-Levodopa 25-250 Tab] 1 each PO BID 11/15/17 [ History] Gabapentin [Neurontin] 300 mg PO HS 11/15/17 [History] Omeprazole [PriLOSEC] 20 mg PO DAILY 11/15/17 [History] Ropinirole HCl [Requip] 2 mg PO TID 11/15/17 [History] Sucralfate [Carafate] 1 gm PO TID 11/15/17 [History] Tramadol HCl [Ultram] 50 mg PO QID PRN 11/15/17 [History] Isosorbide MONOnitrate (24 HR) [Imdur] 30 mg PO DAILY 11/16/17 [History] Metoprolol Succinate [Toprol Xl] 25 mg PO DAILY 11/16/17 [History] 3 Allergy/AdvReac Type Severity Reaction Status Date / Time Penicillins Allergy Hives Verified 11/15/17 00:50 Review of Systems ROS unobtainable: due to mental status (Not able to obtain due to mentation. ) Exam - Vital Signs Vital signs: Initial Vital Signs Temp Pulse Resp BP Pulse Ox 98.0 F 76 20 127/75 100 11/14/17 22:11 11/14/17 22:11 11/14/17 22:11 11/14/17 22:11 11/14/17 22:11 Vital Signs - Last 8 Hours Temp Pulse Resp BP Pulse Ox 11/17/17 09:27 68 14 123/78 93 11/17/17 06:56 97.6 F 69 14 126/78 91 Intake and Output 11/16/17 11/17/17 11/17/17 23:59 07:59 15:59 Intake Total 0 / 0 Output Total 190 / 190 Balance -190 / -190 0 / 0 Intake: Oral 0 / 0 Output: Urine 190 / 190 Other: Meal Breakfast Percent of Meal Consumed 0% Weight 67.2 kg Patient Weight 11/17/17 23:59 Weight 67.2 kg - General Appearance General appearance: appears started age, frail EENT: ATNC Neck: no JVD Respiratory: clear Cardiology: no edema, normal S1, normal S2 Gastrointestinal: normoactive bowel sounds, no tenderness, no guarding Integumentary: no rash, warm and dry Additional Comments: Unable to follow commands or respond to questions. Results - Lab Results 11/17/17 12:19 11/17/17 12:19 Most recent lab results ABG pH 7.45 pH Units (7.32-7.45) 11/17/17 13:49 ABG pCO2 49 mmHg (35-45) H 11/17/17 13:49 ABG pO2 83 mmHg (85-104) L 11/17/17 13:49 ABG HCO3 34 mEq/L (21-27) H 11/17/17 13:49 ABG O2 Saturation 97 % (95-98) 11/17/17 13:49 Calcium 11.1 mg/dL (8.6-10.3) H 11/17/17 12:19 Phosphorus 5.4 mg/dL (2.7-4.5) H 11/14/17 22:25 Magnesium 1.7 mg/dL (1.6-2.6) 11/14/17 22:25 Consult Discharge Plan - Plan Referrals: Olaf Justice DO [Primary Care Provider] -
[2017-11-17] MEDS ORDERED: 0.9 % Sodium Chloride 1,000 ML IVC SCH (14:30)
[2017-11-17 16:39] LABS: Bilirubin,Urine Negative (Negative); Clarity,Urine Clear (Clear); Color,Urine Yellow (Yellow); Glucose,Urine (UA) Normal (Normal); Ketones,Urine Negative (Negative); Specific Gravity,Urine 1.021 (1.010-1.025)
[2017-11-17 16:40] LABS: Blood,Urine Moderate (Negative); Leukocyte Esterase,Urine Negative (Negative); Nitrite,Urine Negative (Negative); PH,Urine 5.5 pH Units (5.0-8.0); Protein,Urine Negative (Neg-Trace); RBC,Urine 15-30 per hpf (0-3); Urobilinogen,Urine Normal (Normal); WBC,Urine 0-3 per hpf (0-3)
[2017-11-17 16:41] LABS: Bacteria,Urine None Seen per hpf (None-Few); Hyaline Casts,Urine None Seen per lpf (None-Few); Squamous Epithelial Cell,Urine None Seen per lpf (None-Few)
[2017-11-17] MEDS ORDERED: *HR* Promethazine 25 MG/ML VIAL IVP PRN (18:13)
[2017-11-17] MEDS ORDERED: *HR* LORazepam 2 MG/ML VIAL IVP PRN (18:13)
[2017-11-17] MEDS ORDERED: Ondansetron 4 MG/2 ML VIAL IVP PRN (18:16)
[2017-11-18] MEDS: *HR* Heparin 5,000 UNIT/ML VIAL SQ SCH ×3 (05:55→20:47)
[2017-11-18 06:07] LABS: BUN/Creatinine Ratio 33 (6-26); Blood Urea Nitrogen 35 mg/dL (8-23); Calcium 11.3 mg/dL (8.6-10.3); Carbon Dioxide 29 mEq/L (23-29); Chloride 101 mEq/L (98-107); Glucose 88 mg/dL (70-105); Osmolality,Calculated 299 (280-300); Potassium 4.3 mEq/L (3.5-5.1); Sodium 141 mEq/L (136-145); eGFR For African Americans > 60 (> 60); eGFR For Non-African Americans > 60 (> 60)
[2017-11-18] MEDS ORDERED: Calcitonin-Salmon, Synthetic 400 UNIT/2 ML VIAL SQ ONE (08:03)
--- NOTE | 2017-11-18 08:12 | Event Note ---
Date of Encounter: 11/18/17 Time of Encounter: 07:45 Nephrology Chart Review/Update Serum Ca continues to worsen and when corrected it is in the moderate range of hypercalcemia. Will inc the IVF to induce more UOP, plus Calcitonin for immediate suppression and ZA bisphosphonate to provide a more sustained suppression. Discussed meds with pharmacy. Will continue to follow closely.
[2017-11-18] MEDS ORDERED: ZOLEDRONIC ACID IV ONE (08:30)
[2017-11-18] MEDS ORDERED: SODIUM CHLORIDE 0.9% IV ONE (08:30)
[2017-11-18] MEDS: 0.9 % Sodium Chloride 1,000 ML IVC SCH ×2 (08:57→19:57)
[2017-11-18] MEDS: Carbidopa/Levodopa 25/250 TABLET PO SCH ×2 (08:58→19:57)
[2017-11-18] MEDS: rOPINIRole 1 MG TABLET PO SCH ×3 (08:58→19:57)
[2017-11-18] MEDS: Aspirin Enteric Coated 325 MG Tablet PO SCH (08:58)
[2017-11-18] MEDS: Sucralfate 1 GM TABLET PO SCH ×3 (08:58→15:30)
[2017-11-18] MEDS ORDERED: Vitamin B Complex/Vit C/Vit E 1 EACH TABLET PO SCH (09:00)
[2017-11-18] MEDS ORDERED: Thiamine (B-1) 100 MG TABLET PO SCH (09:00)
[2017-11-18] MEDS ORDERED: Folic Acid 1 MG TABLET PO SCH (09:00)
--- NOTE | 2017-11-18 10:45 | Internal Med Progress Note ---
Date of Encounter: 11/18/17 Time of Encounter: 09:40 - Assessment and plan (1) Acute metabolic encephalopathy Current Visit: Yes Status: Acute Assessment and plan: Acute suspected metabolic encephalopathy of unknown etiology (hypoxia versus infection process versus thyroid). Pt. is altered as compared to yesterday when it was noted that he was sitting in chair, conversational, and able to use bedside commode w/assistance. O2 increased to 3L. ABG ordered. CT of the head/ brain today shows left frontal scalp soft tissue swelling but no acute intracranial abnormality and diffuse cerebral atrophy with chronic small vessel ischemic disease. Left frontal scalp swelling d/t fall sustained pre-admission which resulted in pelvic fx. TSH and Free T4 ordered. CBC and BMP ordered which shows increasing calcium level of 11.1 after initial IV fluids. IV fluids used judiciously d/t CHF dx. Nephrology consult ordered. Calcitonin and PTH ordered. UA w/reflex micro and culture ordered. Continuous cardiac telemetry added. Falls /safety precautions. Continue to monitor pt. and f/u labs closely. 11/18/2017-concerning for metabolic encephalopathy most likely secondary to hypercalcemia of unclear etiology. Appreciate nephrology follow-up his calcium levels today even higher and nephrology is considering adding calcitonin and Zometa. For now will continue cautious hydration because he does have evidence of dehydration. CT scan of the brain. TSH was within normal limits He also has continuing hypoxia for which a weaning of his O2 has not been successful. I will repeat a chest x-ray today to further quantify if he has developing effusions or not. His ABG is indicative of hypoxia without hypercarbia Sedating medications have been held. Parathyroid hormone related peptide is ordered and pending. Consider underlying malignancy which may be manifesting as hypercalcemia being a strong possibility Will discuss with family in detail today (2) Generalized weakness Current Visit: Yes Status: Acute Assessment and plan: Patient is extremely decompensated and deconditioned and will eventually need fci facility upon discharge. (3) Bronchitis Current Visit: Yes Status: Acute Assessment and plan: Acute bronchitis. Continue 750 mg PO Q48HR for empiric tx. Pt. afebrile @ 97.6, HR 69, RR 14, BP 126/78, SpO2 92% on 3L. Continue to monitor pt. and f/u labs. (4) Parkinson disease Current Visit: Yes Status: Chronic Assessment and plan: Hx of chronic Parkinson's disease. Pts. dosing of Sinemet confirmed w/Pharmacy @ 25/250 BID. Possibility of increasing Sinemet dosing further when AMS resolves. (5) DVT prophylaxis Current Visit: Yes Status: Acute Assessment and plan: Continue heparin 5,000 units SQ Q8 for DVT prophylaxis. Monitor pt. for signs of bleeding. (6) Sacral decubitus ulcer, stage II Current Visit: Yes Status: Chronic Assessment and plan: Hx of chronic decubitus of the sacrum, currently stage II. Wound Care consult ordered for recommendations for daily wound care. Continue to monitor. (7) Hypoxia Current Visit: Yes Status: Acute Assessment and plan: See plan of care above. Chest x-ray ordered. Will titrate further treatment accordingly (8) CHF (congestive heart failure) Current Visit: Yes Status: Chronic Assessment and plan: Hx of chronic CHF. BNP elevated at 312 on admission. CXR yesterday showed bilateral airspace disease and pleural effusions with fluid tracking into the right major fissure. These findings are consistent with edema. Pts. lasix continued. If AMS does not resolve, will convert to IVP lasix. Pt. placed on 2L last night d/t SpO2 of 91%. Changed to 3L today. Echocardiogram from 11/15/17 shows LVEF of 50%, mild basal inferior wall hypokinesis, mild left ventricular diastolic dysfunction, RV is not well evaluated, no significant valvular dysfunction, and no pulmonary hypertension. Will place pt. on telemetry d/t AMS. Qualifiers: Heart failure type: unspecified Heart failure chronicity: unspecified Qualified Code(s): I50.9 - Heart failure, unspecified (9) Protein-calorie malnutrition, moderate Current Visit: Yes Status: Acute Assessment and plan: Evaluation by nutrition ongoing. Added supplements twice a day to 3 times a day (10) Hypercalcemia Current Visit: Yes Status: Acute Assessment and plan: Appreciate nephrology follow-up and inputs. Considering Zometa and calcitonin in addition to IV fluids for gradual hydration - Time Spent With Patient Total time spent is greater than 50% in coordination of care (as documented) at patient's floor/unit and/or counseling patient: Greater than 35 minutes (More than 50% of time spent in [id number] counseling) - Subjective Interval history: Patient is definitely more awake and conversant this morning. He denies any ongoing chest pain or shortness of breath although he is continued to be on 2 L of nasal cannula. - Constitutional Vitals: Temp Pulse Resp BP Pulse Ox 98.2 F 90 16 120/78 90 11/18/17 06:57 11/18/17 06:57 11/18/17 06:57 11/18/17 06:57 11/18/17 09:11 General appearance: Present: A&O X 0, mild distress Exam: GENERAL: Alert, conversant does not appear to be in significant distress, cooperative EYES: PERRLA, EOMI EARS: External ears normal, canals clear OROPHARYNX: Dry mucous membranes NECK: No jugulovenous distention, No carotid bruits, Carotid pulse normal contour, Supple LUNGS: Lungs clear to auscultation, Good diaphragmatic excursion CARDIAC: Normal S1 and S2; no rubs, murmurs, or gallops ABDOMEN: Abdomen soft, non-tender, BS normal, No masses or organomegaly EXTREMITIES: Extremities normal, no deformities, edema, clubbing or skin discoloration. Good capillary refill., No ulcers NEURO: Gait could not be tested. Rest of the exam is non contributory Internal Medicine: Result - Labs CBC & Chem 7: 11/17/17 12:19 11/18/17 05:11 Labs: Short CBC 11/17/17 Range/Units 12:19 WBC 8.8 (4.3-11.1) K/mcL Hgb 11.6 L (12.9-16.9) g/dL Hct 35.2 L (37.5-50.1) % Plt Count 130 L (140-400) K/mcL Neutrophils # 7.5 (1.6-8.9) K/mcL BMP 11/17/17 11/18/17 12:19 05:11 Sodium 139 141 Potassium 3.7 4.3 Chloride 101 101 Carbon Dioxide 32 H 29 BUN 35 H 35 H Creatinine 0.97 1.05 Glucose 101 88 Calcium 11.1 H 11.3 H Urine 11/17/17 Range/Units 16:00 Urine Color Yellow (Yellow) Urine Clarity Clear (Clear) Urine pH 5.5 (5.0-8.0) pH Units Ur Specific [place] 1.021 (1.010-1.025) Urine Protein Negative (Neg-Trace) mg/dL Urine Glucose (UA) Normal (Normal) mg/dL - ABG Interpretation ABG results: ABG ABG pH 7.45 pH Units (7.32-7.45) 11/17/17 13:49 ABG pCO2 49 mmHg (35-45) H 11/17/17 13:49 ABG pO2 83 mmHg (85-104) L 11/17/17 13:49 ABG O2 Saturation 97 % (95-98) 11/17/17 13:49 - Impressions Impressions Head CT 11/17/17 10:28 IMPRESSION: 1. Left frontal scalp soft tissue swelling but no acute intracranial abnormality. 2. Diffuse cerebral atrophy with chronic small vessel ischemic disease. D/ / Aroldo Martinez MD / Aroldo Martinez MD Interpreting Provider: Aroldo Martinez MD Consult Discharge Plan - Plan Referrals: Olaf Justice DO [Primary Care Provider] -
--- NOTE | 2017-11-18 10:50 | Nephrology Progress Note ---
Date of Encounter: 11/18/17 Time of Encounter: 09:50 - Assessment and Plan (1) Hypercalcemia Status: Resolved With the risking SCa, I recommend Calcitonin and ZA bisphonphate. I reviewed the dosing with Pharmacy Suspect hypercalcemia of malignancy vs severe volume depletion. Cont IVF as he clinically is not exhibiting features of CHF and appears to still have a fluid deficit. My colleague Dr. Shepard will be on-call tomorrow, and I will provide a thorough hand-off. Thank you. (2) Acute metabolic encephalopathy Status: Resolved Likely multifactorial but since the SCa as risen and his AMS was concurrent with the hypercalcemia, this is why I arranged for the above interventions after weighing the Pros/Cons and potential SEs. (3) Generalized weakness Status: Acute As per primary (4) Protein-calorie malnutrition, moderate Status: Acute Recommend nutrition when able. As per primary. Subjective Principal diagnosis: Hypercalcemia Interval history: Pt was s/e earlier today. He was sitting up and slowly talking, and he had two male visitors from his tenriism. No family present. He did not affirm feeling hungry, new twitching or N/V. He said he has been consuming "Tums for acid reflux" recently, though yesterday his sons said that the pt has not been recently taking Tums, to their knowledge. Objective - Vital Signs Vital signs: Vital Signs Temp Pulse Resp BP Pulse Ox 11/18/17 09:11 90 11/18/17 06:57 98.2 F 90 16 120/78 90 11/18/17 03:00 98.3 F 84 13 130/79 100 11/17/17 22:58 97.1 F L 54 13 135/85 97 11/17/17 18:48 97.3 F L 71 14 120/69 94 11/17/17 14:52 97.5 F L 69 14 123/70 97 Intake and Output 11/17/17 11/18/17 11/18/17 23:59 07:59 15:59 Intake Total 120 / 120 Output Total 550 / 550 450 / 450 550 / 550 Balance -550 / -550 -450 / -450 -430 / -430 Intake: Oral 120 / 120 Output: Catheter 550 / 550 450 / 450 550 / 550 Other: Meal Breakfast Percent of Meal Consumed 10% Weight 65.7 kg Patient Weight 11/18/17 23:59 Weight 65.7 kg - General Appearance General appearance: Present: chronically ill, fatigue, frail, comatose EENT: Present: mucous membranes dry Neck: Present: supple Respiratory: Present: clear Cardiology: Present: no edema, normal S1, normal S2 Gastrointestinal: Present: no tenderness, no guarding Additional Comments: Very thin, concave abd Neurologic: Present: asterixis, confused, disoriented Musculoskeletal: Present: no cyanosis, no clubbing - Lab 11/17/17 12:19 11/19/17 07:51 Most recent lab results ABG pH 7.45 pH Units (7.32-7.45) 11/17/17 13:49 ABG pCO2 49 mmHg (35-45) H 11/17/17 13:49 ABG pO2 83 mmHg (85-104) L 11/17/17 13:49 ABG HCO3 34 mEq/L (21-27) H 11/17/17 13:49 ABG O2 Saturation 97 % (95-98) 11/17/17 13:49 Calcium 11.3 mg/dL (8.6-10.3) H 11/18/17 05:11 Phosphorus 5.4 mg/dL (2.7-4.5) H 11/14/17 22:25 Magnesium 1.7 mg/dL (1.6-2.6) 11/14/17 22:25 Consult Discharge Plan - Plan Referrals: Olaf Justice DO [Primary Care Provider] -
[2017-11-18] MEDS: Acetaminophen 325 MG TABLET PO PRN (15:30)
[2017-11-18] MEDS ORDERED: Thiamine (B-1) 100 MG, Folic Acid 1 MG, MVI, adult with vitamin K 10 ML in 0.9 % Sodi... IVPB SCH (18:00)
[2017-11-18] MEDS: Miconazole w/zinc oxide&karaya 92 APPL/92 GM TUBE TP SCH (19:58)
[2017-11-19] MEDS: Acetaminophen 325 MG TABLET PO PRN ×4 (02:12→20:46)
[2017-11-19] MEDS ORDERED: Melatonin 3 MG TABLET PO ONE (02:34)
[2017-11-19] MEDS: 0.9 % Sodium Chloride 1,000 ML IVC SCH (05:32)
[2017-11-19] MEDS: *HR* Heparin 5,000 UNIT/ML VIAL SQ SCH ×3 (05:33→20:53)
[2017-11-19 08:20] LABS: BUN/Creatinine Ratio 44 (6-26); Blood Urea Nitrogen 36 mg/dL (8-23); Calcium 9.6 mg/dL (8.6-10.3); Carbon Dioxide 35 mEq/L (23-29); Chloride 106 mEq/L (98-107); Glucose 99 mg/dL (70-105); Osmolality,Calculated 302 (280-300); Potassium 3.8 mEq/L (3.5-5.1); Sodium 142 mEq/L (136-145); eGFR For African Americans > 60 (> 60); eGFR For Non-African Americans > 60 (> 60)
[2017-11-19] MEDS: rOPINIRole 1 MG TABLET PO SCH ×3 (08:48→20:52)
[2017-11-19] MEDS: Sucralfate 1 GM TABLET PO SCH ×3 (08:48→16:05)
[2017-11-19] MEDS: Aspirin Enteric Coated 325 MG Tablet PO SCH (08:48)
[2017-11-19] MEDS: Carbidopa/Levodopa 25/250 TABLET PO SCH ×2 (08:48→20:52)
[2017-11-19] MEDS: levoFLOXacin 750 MG TABLET PO SCH (08:48)
--- NOTE | 2017-11-19 11:54 | Internal Med Progress Note ---
Date of Encounter: 11/19/17 Time of Encounter: 10:30 - Assessment and plan (1) Acute metabolic encephalopathy Current Visit: Yes Status: Acute Assessment and plan: Acute metabolic encephalopathy is significantly improved today. Most likely a combination of dehydration and hypercalcemia. Appreciate nephrology input. Patient has improved significantly with hydration. His calcium level is improving after recent dose of calcitonin and Zometa. His THS was normal and his pain is well controlled at this point. We will continue to wean his oxygen down while on the floor. His last chest x-ray did show mild fluid development along the bases hence I will be very careful continuing further fluids. Explained to the nurse in detail. (2) Hypercalcemia Current Visit: Yes Status: Acute Assessment and plan: Calcium levels improving with calcitonin and Zometa. Appreciate nephrology consultation and follow-up Underlying etiology of hypercalcemia is still unclear and malignancy is still in the differential especially given his poor BMI and cachectic appearance. This will need to be further explored upon discharge by his primary care physician (3) Generalized weakness Current Visit: Yes Status: Acute Assessment and plan: Patient is extremely decompensated and deconditioned and will eventually need residential facility upon discharge. Awaiting discharge planning. (4) Bronchitis Current Visit: Yes Status: Acute Assessment and plan: We will complete a five-day course of Levaquin . Anticipate discontinuing antibiotics over the weekend (5) Parkinson disease Current Visit: Yes Status: Chronic Assessment and plan: Hx of chronic Parkinson's disease. Pts. dosing of Sinemet confirmed w/Pharmacy @ 25/250 BID. Possibility of increasing Sinemet dosing further when AMS resolves. This will need to be followed up as an outpatient (6) DVT prophylaxis Current Visit: Yes Status: Acute Assessment and plan: Continue heparin 5,000 units SQ Q8 for DVT prophylaxis. Monitor pt. for signs of bleeding. (7) Sacral decubitus ulcer, stage II Current Visit: Yes Status: Chronic Assessment and plan: Hx of chronic decubitus of the sacrum, currently stage II. Wound Care consult ordered for recommendations for daily wound care. Continue to monitor. (8) Hypoxia Current Visit: Yes Status: Acute Assessment and plan: Chest x-ray showed mild fluid congestion along the bases. We will hold further IV fluids now that his electrolytes are better. We will try to wean his oxygen off and if not we might have to give him just a small dose of Lasix (9) CHF (congestive heart failure) Current Visit: Yes Status: Chronic Assessment and plan: Hx of chronic CHF. BNP elevated at 312 on admission. CXR yesterday showed bilateral airspace disease and pleural effusions with fluid tracking into the right major fissure. These findings are consistent with edema. Pts. lasix continued. If AMS does not resolve, will convert to IVP lasix. Pt. placed on 2L last night d/t SpO2 of 91%. Changed to 3L today. Echocardiogram from 11/15/17 shows LVEF of 50%, mild basal inferior wall hypokinesis, mild left ventricular diastolic dysfunction, RV is not well evaluated, no significant valvular dysfunction, and no pulmonary hypertension. Will place pt. on telemetry d/t AMS. 11/19/2017-as mentioned above there was mild pleural effusions that were demonstrated on the recent most x-ray. The patient's clinical situation did not warrant getting fluids for worsening hypercalcemia as well as dehydration. I have today held his IV fluids and we will continue to monitor closely. May need to diurese him gently if indicated and if we are unable to wean him down to room air. He may also need a desaturation study on the day of discharge and in fact might need to go [facility] on oxygen and continue the weaning process there. Qualifiers: Heart failure type: unspecified Heart failure chronicity: unspecified Qualified Code(s): I50.9 - Heart failure, unspecified (10) Protein-calorie malnutrition, moderate Current Visit: Yes Status: Acute Assessment and plan: Evaluation by nutrition ongoing. Added supplements twice a day to 3 times a day - Time Spent With Patient Total time spent is greater than 50% in coordination of care (as documented) at patient's floor/unit and/or counseling patient: Greater than 35 minutes - Subjective Interval history: Patient is comfortable and sitting upright in chair. Family at Bedside. Patient denies any worsening shortness of breath, chest pain. - Constitutional Vitals: Temp Pulse Resp BP Pulse Ox 97.5 F L 80 17 122/82 90 11/19/17 06:59 11/19/17 06:59 11/19/17 06:59 11/19/17 06:59 11/19/17 09:39 General appearance: Present: A&O X 0, mild distress Exam: GENERAL: Alert, conversant does not appear to be in significant distress, cooperative EYES: PERRLA, EOMI EARS: External ears normal, canals clear OROPHARYNX: Dry mucous membranes NECK: No jugulovenous distention, No carotid bruits, Carotid pulse normal contour, Supple LUNGS: Lungs clear to auscultation, Good diaphragmatic excursion CARDIAC: Normal S1 and S2; no rubs, murmurs, or gallops ABDOMEN: Abdomen soft, non-tender, BS normal, No masses or organomegaly EXTREMITIES: Extremities normal, no deformities, edema, clubbing or skin discoloration. Good capillary refill., No ulcers NEURO: Gait could not be tested. Rest of the exam is non contributory Internal Medicine: Result - Labs CBC & Chem 7: 11/17/17 12:19 11/19/17 07:51 Labs: BMP 11/18/17 11/19/17 18:21 07:51 Sodium 142 Potassium 3.8 Chloride 106 Carbon Dioxide 35 H BUN 36 H Creatinine 0.81 Glucose 99 Calcium 10.0 9.6 - ABG Interpretation ABG results: ABG ABG pH 7.45 pH Units (7.32-7.45) 11/17/17 13:49 ABG pCO2 49 mmHg (35-45) H 11/17/17 13:49 ABG pO2 83 mmHg (85-104) L 11/17/17 13:49 ABG O2 Saturation 97 % (95-98) 11/17/17 13:49 - Impressions Impressions Chest X-Ray 11/18/17 10:49 IMPRESSION: Slight interval improvement of right mid lung airspace opacity. Slightly increasing small bilateral pleural effusions. D/ : / 11/18/2017 15:19:44 Natalia Godwin MD / [facility] Interpreting Provider: Natalia Godwin MD Consult Discharge Plan - Plan Referrals: Olaf Justice DO [Primary Care Provider] -
[2017-11-19] MEDS: Miconazole w/zinc oxide&karaya 92 APPL/92 GM TUBE TP SCH (12:05)
--- NOTE | 2017-11-19 20:07 | Nephrology Progress Note ---
Date of Encounter: 11/19/17 Time of Encounter: 20:03 - Assessment and Plan (1) Hypercalcemia Current Visit: Yes Status: Acute Patient being following for hypercalcemia with mild DAYO. Renal function improving. Calcium back to normal with non dialytic management. Will sign off. Please call if concerns. Patient can follow-up with Dr. Cornell in clinic as needed per the direction of his PCP. Subjective Principal diagnosis: Hypercalcemia Interval history: Patient seen. He has no new complaint. Objective - Vital Signs Vital signs: Vital Signs Temp Pulse Resp BP Pulse Ox 11/19/17 18:55 97.5 F L 97 18 110/68 90 11/19/17 16:48 97.4 F L 86 16 109/62 90 11/19/17 12:02 96.6 F L 79 16 113/76 92 11/19/17 09:39 90 11/19/17 06:59 97.5 F L 80 17 122/82 95 11/19/17 03:27 97.9 F 83 18 110/66 90 11/18/17 23:47 97.8 F 88 16 119/74 92 Intake and Output 11/19/17 11/19/17 11/19/17 07:59 15:59 23:59 Intake Total 1000 / 1000 0 / 0 Output Total 250 / 250 400 / 400 Balance 750 / 750 -400 / -400 0 / 0 Intake: IV Fluids 1000 / 1000 0.9 % Sodium Chloride 1,000 ML 1000 / 1000 @ 100 mls/hr IVC .Q10H MILAGROS Rx#: [id number] Oral 0 / 0 Output: Catheter 250 / 250 400 / 400 Other: Meal Dinner Percent of Meal Consumed 10% Weight 68 kg Patient Weight 11/19/17 23:59 Weight 68 kg - General Appearance General appearance: Present: well-developed, well-nourished, chronically ill Neck: Present: supple Cardiology: Present: regular rate Integumentary: Present: warm and dry Additional Comments: alert - Lab 11/17/17 12:19 11/19/17 07:51 Most recent lab results ABG pH 7.45 pH Units (7.32-7.45) 11/17/17 13:49 ABG pCO2 49 mmHg (35-45) H 11/17/17 13:49 ABG pO2 83 mmHg (85-104) L 11/17/17 13:49 ABG HCO3 34 mEq/L (21-27) H 11/17/17 13:49 ABG O2 Saturation 97 % (95-98) 11/17/17 13:49 Calcium 9.6 mg/dL (8.6-10.3) 11/19/17 07:51 Phosphorus 5.4 mg/dL (2.7-4.5) H 11/14/17 22:25 Magnesium 1.7 mg/dL (1.6-2.6) 11/14/17 22:25 Consult Discharge Plan - Plan Referrals: Olaf Justice DO [Primary Care Provider] -
[2017-11-20] MEDS ORDERED: Mag Hydrox/Al Hydrox/Simeth 30 ML UDC PO PRN (01:01)
[2017-11-20] MEDS ORDERED: Haloperidol Lactate 5 MG/ML VIAL IVP ONE (02:59)
[2017-11-20] MEDS ORDERED: Melatonin 3 MG TABLET PO SCH (03:00)
[2017-11-20] MEDS: Miconazole w/zinc oxide&karaya 92 APPL/92 GM TUBE TP SCH ×3 (03:17→21:04)
[2017-11-20] MEDS: *HR* Heparin 5,000 UNIT/ML VIAL SQ SCH ×3 (05:36→21:06)
[2017-11-20] MEDS: rOPINIRole 1 MG TABLET PO SCH ×3 (08:35→21:06)
[2017-11-20] MEDS: Sucralfate 1 GM TABLET PO SCH ×3 (08:36→16:04)
[2017-11-20] MEDS: Aspirin Enteric Coated 325 MG Tablet PO SCH (08:36)
[2017-11-20] MEDS: Carbidopa/Levodopa 25/250 TABLET PO SCH ×2 (08:36→21:05)
--- NOTE | 2017-11-20 11:37 | Internal Med Progress Note ---
Date of Encounter: 11/20/17 Time of Encounter: 10:30 - Assessment and plan (1) Generalized weakness Current Visit: Yes Status: Acute Assessment and plan: Pt cachectic, deconditioned. Pt has Parkinson's disease. PT/OT has recommended SNF after discharge, has been accepted at [facility], can be discharged when medically stable. (2) Bronchitis Current Visit: Yes Status: Acute Assessment and plan: Lungs clearin anterior lung san[place]. Pt has moist cough. Pt will finish 5 day course of antibiotics tomorrow-Levaquin 750mg po q48. Pt on room air, no tachycardia, no fever, normotensive. (3) CHF (congestive heart failure) Current Visit: Yes Status: Chronic Assessment and plan: Mild acute exacerbation of diastolic heart failure. Mild elevation of BNP on admission, 11/18 chest xray showed slightly increasing small bilateral pleural effusions, no overt pulmonary edema. Lungs are clear, pt has moist cough. Pt is on room air, no distress, no peripheral edema. Continue to hold IVF, no diuretics ordered at this time. Echocardiogram 11/15/17 02:03 Impressions: LVEF 50%. Mild basal inferior wall hypokinesis. Mild left ventricular diastolic dysfunction. RV is not well evaluated. No significant valvular dysfunction. No pulmonary hypertension. Left Ventricular Wall Motion: Rest Echo Findings The basal inferior wall was hypokinetic. All other wall segments showed normal motion. Findings: Study Quality * Technically sub-optimal due to clinical status - patient unable to be well positioned for procedure. ECG Findings * Normal sinus rhythm. Aorta * Normally sized aortic root. Left Ventricle * LVEF 50%. * Normal LV chamber size, wall thickness and function. * Mild left ventricular diastolic dysfunction. Right Ventricle * RV is not well evaluated. Left Atrium * Normal left atrial size. Right Atrium * Normal right atrial size. Aortic Valve * No aortic regurgitation. * Aortic valve not well visualized. * No aortic stenosis. Mitral Valve * Normal mitral valve structure. * No mitral regurgitation. * No mitral stenosis. Tricuspid Valve * Tricuspid valve not well visualized. * Trace tricuspid regurgitation. * Estimated RA pressure is 3 mmHg. * Estimated RVSP is 24 mmHg. * No pulmonary hypertension. Pulmonic Valve * Pulmonic valve is not well visualized. * No pulmonic stenosis. * No pulmonic regurgitation. Pulmonary Artery * Pulmonary artery not well visualized. Pericardium * There is no pericardial effusion present. IVC * Normal IVC dimensions and inspiratory collapse. Chest X-Ray 11/18/17 10:49 IMPRESSION: Slight interval improvement of right mid lung airspace opacity. Slightly increasing small bilateral pleural effusions. D/ / 11/18/2017 15:19:44 Natalia Godwin MD / [facility] Interpreting Provider: Natalia Godwin MD Hx of chronic CHF. BNP elevated at 312 on admission. CXR yesterday showed bilateral airspace disease and pleural effusions with fluid tracking into the right major fissure. These findings are consistent with edema. Pts. lasix continued. If AMS does not resolve, will convert to IVP lasix. Pt. placed on 2L last night d/t SpO2 of 91%. Changed to 3L today. Echocardiogram from 11/15/17 shows LVEF of 50%, mild basal inferior wall hypokinesis, mild left ventricular diastolic dysfunction, RV is not well evaluated, no significant valvular dysfunction, and no pulmonary hypertension. Will place pt. on telemetry d/t AMS. 11/19/2017-as mentioned above there was mild pleural effusions that were demonstrated on the recent most x-ray. The patient's clinical situation did not warrant getting fluids for worsening hypercalcemia as well as dehydration. I have today held his IV fluids and we will continue to monitor closely. May need to diurese him gently if indicated and if we are unable to wean him down to room air. He may also need a desaturation study on the day of discharge and in fact might need to go to the snf on oxygen and continue the weaning process there. Qualifiers: Heart failure type: unspecified Heart failure chronicity: unspecified Qualified Code(s): I50.9 - Heart failure, unspecified (4) Parkinson disease Current Visit: Yes Status: Chronic Assessment and plan: Chronic. Continue home dose of Sinemet. Pt is going to be placed in ECF for continuing care. Monitor for safety, falls. PT/OT at ECF. (5) Sacral decubitus ulcer, stage II Current Visit: Yes Status: Chronic Assessment and plan: Chronic, present prior to arrival. Wound care at ECF. Pt without leukocytosis, fever, tachycardia, pt remains normotensive. (6) Hypoxia Current Visit: Yes Status: Acute Assessment and plan: Resolved. Pt has been weaned to room air, no distress noted. (7) Acute metabolic encephalopathy Current Visit: Yes Status: Acute Assessment and plan: Resolved. Likely secondary to dehydration and hypercalcemia. Pt is alert and oriented x1, pleasant, answers questions appropriately. Calcium WNL today, pt does appear to be slightly dry, will give gentle IVF hydration. Continue to monitor for safety. Monitor labs and vitals. (8) Hypercalcemia Current Visit: Yes Status: Acute Assessment and plan: 11/20/17- Resolved. Calcium WNL today. Underlying etiology of hypercalcemia is still unclear and malignancy is still in the differential especially given his poor BMI and cachectic appearance. This will need to be further explored upon discharge by his primary care physician (9) Protein-calorie malnutrition, moderate Current Visit: Yes Status: Acute Assessment and plan: Continue supplements at ECF. (10) DVT prophylaxis Current Visit: Yes Status: Acute Assessment and plan: Heparin SQ TID. - Time Spent With Patient Total time spent is greater than 50% in coordination of care (as documented) at patient's floor/unit and/or counseling patient: less than 15 minutes - Subjective Interval history: Pt was seen and assessed at bedside at 1030. Pt is alert and awake, oriented to name only. Pt is pleasant and answers questions appropriately. He denies pain, headache, nausea, abdominal pain, chest pain. - Constitutional Vitals: Temp Pulse Resp BP Pulse Ox 98.0 F 102 18 132/96 92 11/20/17 07:58 11/20/17 07:58 11/20/17 07:58 11/20/17 07:58 11/20/17 07:58 General appearance: Present: cachectic, A&O X 1, mild distress, pleasant, no acute distress, answers questions appropriately - Head Head exam: Present: atraumatic, normal inspection, normocephalic - Eye Eye exam: Present: normal appearance, conjuntiva pink, sclera anicteric Pupils: Present: PERRL - Neck Neck exam general surgery: Present: normal inspection, supple, trachea midline. Absent: lymphadenopathy, tenderness - Respiratory Respiratory exam: Present: CTAB. Absent: accessory muscle use, rales, rhonchi, wheezes - Cardiovascular Cardiovascular exam: Present: RRR, +S1, +S2. Absent: diastolic murmur, gallop, rubs, systolic murmur - GI/Abdominal GI/Abdominal exam: Present: normal bowel sounds, soft, no peritoneal signs. Absent: distended, hepatomegaly, tenderness - Extremities Exam Extremities exam: Present: normal capillary refill, normal inspection, warm, radial pulses palpable and symmetrical. Absent: calf tenderness, cyanotic, pedal edema, tenderness - Neurological Exam Neurological exam: Present: alert, altered, no focal deficits. Absent: oriented X3 Additional comments: Due to overall physical deconditioning, Parkinson's, speech is garbled, pt has difficulty closing mouth, mouth always open. - Skin Skin exam: Present: dry, intact, normal color, warm. Absent: rash Internal Medicine: Result - Labs CBC & Chem 7: 11/17/17 12:19 11/19/17 07:51 - ABG Interpretation ABG results: ABG ABG pH 7.45 pH Units (7.32-7.45) 11/17/17 13:49 ABG pCO2 49 mmHg (35-45) H 11/17/17 13:49 ABG pO2 83 mmHg (85-104) L 11/17/17 13:49 ABG O2 Saturation 97 % (95-98) 11/17/17 13:49 Consult Discharge Plan - Plan Referrals: Olaf Justice DO [Primary Care Provider] -
[2017-11-20] MEDS ORDERED: 0.9 % Sodium Chloride 1,000 ML IVC SCH (12:30)
[2017-11-20] MEDS: Acetaminophen 325 MG TABLET PO PRN (21:05)
[2017-11-21] MEDS: *HR* Heparin 5,000 UNIT/ML VIAL SQ SCH (05:40)
--- NOTE | 2017-11-21 07:10 | Discharge Summary ---
Orders not resulted at time of discharge: Pending orders 11/18/17 04:11 Parathormone Related Peptide AM 0400 Date of Encounter: 11/21/17 - Discharge Diagnosis (1) Generalized weakness Status: Acute (2) Bronchitis Status: Acute (3) CHF (congestive heart failure) Status: Chronic Qualifiers: Heart failure type: unspecified Heart failure chronicity: unspecified Qualified Code(s): I50.9 - Heart failure, unspecified (4) Parkinson disease Status: Chronic (5) Sacral decubitus ulcer, stage II Status: Chronic (6) Hypoxia Status: Acute (7) Acute metabolic encephalopathy Status: Acute (8) Hypercalcemia Status: Acute (9) Protein-calorie malnutrition, moderate Status: Acute (10) DVT prophylaxis Status: Acute Hospital course: Mr. Dowling is a 87 year old male - Time Spent with Patient Total time spent providing and/or coordinating discharge services: - Discharge Medications Home Medications: Aspirin/Calcium Carbonate/Mag [Aspirin Buffered 325 mg Tab] 325 mg PO DAILY 01/26 [History] Carbidopa/Levodopa [Carbidopa-Levodopa 25-250 Tab] 1 each PO BID 11/15/17 [ History] Gabapentin [Neurontin] 300 mg PO HS 11/15/17 [History] Omeprazole [PriLOSEC] 20 mg PO DAILY 11/15/17 [History] Ropinirole HCl [Requip] 2 mg PO TID 11/15/17 [History] Sucralfate [Carafate] 1 gm PO TID 11/15/17 [History] Tramadol HCl [Ultram] 50 mg PO QID PRN 11/15/17 [History] Isosorbide MONOnitrate (24 HR) [Imdur] 30 mg PO DAILY 11/16/17 [History] Metoprolol Succinate [Toprol Xl] 25 mg PO DAILY 11/16/17 [History] Allergies/Adverse Reactions: 3 Allergy/AdvReac Type Severity Reaction Status Date / Time Penicillins Allergy Hives Verified 11/15/17 00:50 Date of admission: 11/17/17 13:31 Primary care physician: Olaf Justice Consults: 11/17/17 13:44 Consult to Nutrition [CONS] Routine Comment: Consulting Provider: NUTRITION Reason for Dietary Consult: Other Other:: concern for severe PCM 11/20/17 19:12 Consult to Speech Therapy [CONS] Routine Comment: Evaluate, develop and implement POC Reason for Consult: choking on water Call Completed: No - Constitutional Vitals: Temp Pulse Resp BP Pulse Ox 97.9 F 99 14 107/61 99 11/21/17 03:28 11/21/17 03:28 11/21/17 03:28 11/21/17 03:28 11/21/17 03:28 General appearance: Present: cachectic, A&O X 1, mild distress, pleasant, no acute distress, answers questions appropriately - Patient Status Condition: Fair - Discharge Instructions Follow Up With: Olaf Justice DO [Primary Care Provider] -
--- NOTE | 2017-11-21 07:27 | Discharge Summary ---
- NOTES TO OUTPATIENT PROVIDER Notes to Outpatient Provider: Pt was admitted for dehydration, bronchitis , suspected pneumonia, mild exacerbation of CHF. He was treated with Levaquin 750mg po q48 hrs for 5 days. Pt has been hypoxic on room air and will return to ECF with 02. Repeat chest xray on 11/18 showed slight imrpovement of right airspace opacity with slightly increasing small bilateral pleural effusions. Recommend repeat chest xray in 1 week. Pt also treated for hypocalcemia and mild DAYO, which has resolved. Nephrology was consulted and pt can follow up with Dr. Cornell in the office. Orders not resulted at time of discharge: Pending orders 11/18/17 04:11 Parathormone Related Peptide AM 0400 Date of Encounter: 11/21/17 Time of Encounter: 08:50 - Discharge Diagnosis (1) Acute metabolic encephalopathy Priority: Primary Status: Acute Assessment and Plan: Resolved. Likely secondary to dehydration and hypercalcemia. Pt is alert and oriented x1, pleasant, answers questions appropriately. Continue to monitor for safety. Monitor labs and vitals. (2) Generalized weakness Priority: Secondary Status: Acute Assessment and Plan: Pt cachectic, deconditioned. Pt has Parkinson's disease. PT/OT has recommended SNF after discharge, has been accepted at [facility], can be discharged when medically stable. Continue PT/OT at SNF. (3) Bronchitis Priority: Secondary Status: Acute Assessment and Plan: Lungs clear in anterior lung [place]. Pt has moist cough. Chest xray showed slight improvement of right mid lung airspace opacity and slightly increasing small biltaeral pleural effusions. Pt will finish 5 day course of antibiotics 11/21/17-Levaquin 750mg po q48. Pt on room air, no tachycardia, no fever, normotensive. Chest X-Ray 11/18/17 10:49 IMPRESSION: Slight interval improvement of right mid lung airspace opacity. Slightly increasing small bilateral pleural effusions. D/ / 11/18/2017 15:19:44 Natal[facility] MD / [facility] Interpreting Provider: Natalia Godwin MD (4) CHF (congestive heart failure) Priority: Secondary Status: Chronic Assessment and Plan: Mild acute exacerbation of diastolic heart failure. Mild elevation of BNP on admission, 11/18 chest xray showed slightly increasing small bilateral pleural effusions, no overt pulmonary edema. Lungs are clear, pt has moist cough. Pt is on room air, no distress, no peripheral edema. Continue to hold IVF, no diuretics ordered at this time. Pt euvolemic, no peripheral edema, lungs clear, pt in no distress. Echocardiogram 11/15/17 02:03 Impressions: LVEF 50%. Mild basal inferior wall hypokinesis. Mild left ventricular diastolic dysfunction. RV is not well evaluated. No significant valvular dysfunction. No pulmonary hypertension. Left Ventricular Wall Motion: Rest Echo Findings The basal inferior wall was hypokinetic. All other wall segments showed normal motion. Findings: Study Quality * Technically sub-optimal due to clinical status - patient unable to be well positioned for procedure. ECG Findings * Normal sinus rhythm. Aorta * Normally sized aortic root. Left Ventricle * LVEF 50%. * Normal LV chamber size, wall thickness and function. * Mild left ventricular diastolic dysfunction. Right Ventricle * RV is not well evaluated. Left Atrium * Normal left atrial size. Right Atrium * Normal right atrial size. Aortic Valve * No aortic regurgitation. * Aortic valve not well visualized. * No aortic stenosis. Mitral Valve * Normal mitral valve structure. * No mitral regurgitation. * No mitral stenosis. Tricuspid Valve * Tricuspid valve not well visualized. * Trace tricuspid regurgitation. * Estimated RA pressure is 3 mmHg. * Estimated RVSP is 24 mmHg. * No pulmonary hypertension. Pulmonic Valve * Pulmonic valve is not well visualized. * No pulmonic stenosis. * No pulmonic regurgitation. Pulmonary Artery * Pulmonary artery not well visualized. Pericardium * There is no pericardial effusion present. IVC * Normal IVC dimensions and inspiratory collapse. Chest X-Ray 11/18/17 10:49 IMPRESSION: Slight interval improvement of right mid lung airspace opacity. Slightly increasing small bilateral pleural effusions. D/ / 11/18/2017 15:19:44 Natalia Godwin MD / [facility] Interpreting Provider: Natalia Godwin MD Qualifiers: Heart failure type: unspecified Heart failure chronicity: unspecified Qualified Code(s): I50.9 - Heart failure, unspecified (5) Parkinson disease Priority: Secondary Status: Chronic Assessment and Plan: Chronic. Continue home dose of Sinemet. Pt is going to be placed in ECF for continuing care. Monitor for safety, falls,continue at ECF. Continue PT/OT. (6) Sacral decubitus ulcer, stage II Priority: Secondary Status: Chronic Assessment and Plan: Chronic, present prior to arrival. Continue wound care at ECF. Pt without leukocytosis, fever, tachycardia, pt remains normotensive. (7) Hypoxia Priority: Secondary Status: Acute Assessment and Plan: Pt is again requiring supplemental 02. Continue at ECF. (8) Hypercalcemia Priority: Secondary Status: Resolved Assessment and Plan: 11/20/17- Resolved. Calcium WNL 11/19. Recommend BMP in one week to reassess. Underlying etiology of hypercalcemia is still unclear and malignancy is still in the differential especially given his poor BMI and cachectic appearance. This will need to be further explored upon discharge by his primary care physician (9) Protein-calorie malnutrition, moderate Priority: Secondary Status: Acute Assessment and Plan: Continue supplements at ECF. Pt currently getting Ensure Enlive BID. Regular diet. (10) Acute respiratory failure Priority: Secondary Status: Acute Assessment and Plan: Acute. Secondary to bronchitis and mild exacerbation of CHF. Continue 02 as needed to maintain 02 sats > 92%. Qualifiers: Respiratory failure complication: hypoxia Qualified Code(s): J96.01 - Acute respiratory failure with hypoxia (11) DVT prophylaxis Priority: Secondary Status: Acute Assessment and Plan: SQ Heparin q8h. Hospital course: Mr. Dowling is a 87 year old male with past medical history of CHF, Parkinson's , chronic back pain with pain pump, recent pelvic fracture, stage II sacral decubitus ulcer. Patient presented to the emergency department with 2 week history of weakness. Patient lives at home alone with friends and family see him consistently around the clock. They reported him having a cough that is dry. No fever and increasing weakness and drowsiness. Patient with recent fall and pelvic fracture is being managed by his primary care conservatively and he has been less active since that time. Patient was admitted and treated for dehydration, acute respiratory failure, hypoxia, bronchitis and suspected pneumonia, mild exacerbation of CHF. He developed acute metabolic encephalopathy during his stay which has improved. Most possibly exacerbated by dehydration and hypercalcemia. Patient was evaluated by nephrology, they have signed off and patient will follow-up with Dr. Cornell in the office. His goal therapy and occupational therapy. PT/OT have Recommend patient go to SNF for continued physical therapy and occupational therapy after discharge. Primary nurse felt that patient was having some dysphasia consult and speech therapy, patient was found to be okay and will have advanced soft diet with thin liquids. Also recommended the patient have a magic For lunch and dinner due to protein calorie malnutrition. Patient is more alert and awake than I have seen him. Answers questions appropriately and is alert, oriented to name only. He is pleasant and answers questions appropriately. His vital signs and labs are stable and within normal limits. He is appropriate ready for discharge. Discharge discussed with: patient - Time Spent with Patient Total time spent providing and/or coordinating discharge services: Less than 30 minutes - Discharge Medications Home Medications: Aspirin/Calcium Carbonate/Mag [Aspirin Buffered 325 mg Tab] 325 mg PO DAILY 01/26 [History] Carbidopa/Levodopa [Carbidopa-Levodopa 25-250 Tab] 1 each PO BID 11/15/17 [ History] Gabapentin [Neurontin] 300 mg PO HS 11/15/17 [History] Omeprazole [PriLOSEC] 20 mg PO DAILY 11/15/17 [History] Ropinirole HCl [Requip] 2 mg PO TID 11/15/17 [History] Sucralfate [Carafate] 1 gm PO TID 11/15/17 [History] Tramadol HCl [Ultram] 50 mg PO QID PRN 11/15/17 [History] Isosorbide MONOnitrate (24 HR) [Imdur] 30 mg PO DAILY 11/16/17 [History] Metoprolol Succinate [Toprol Xl] 25 mg PO DAILY 11/16/17 [History] Mag Hydrox/Al Hydrox/Simeth [Maalox] 15 ml PO Q6HR PRN udc 11/21/17 [Rx] Miconazole w/zinc oxide&karaya [Antifungal Extra Thick] 1 appl TP BID tube [Rx] Allergies/Adverse Reactions: 3 Allergy/AdvReac Type Severity Reaction Status Date / Time Penicillins Allergy Hives Verified 11/15/17 00:50 Date of admission: 11/17/17 13:31 Primary care physician: Olaf Justice Consults: 11/17/17 13:44 Consult to Nutrition [CONS] Routine Comment: Consulting Provider: NUTRITION Reason for Dietary Consult: Other Other:: concern for severe PCM 11/20/17 19:12 Consult to Speech Therapy [CONS] Routine Comment: Evaluate, develop and implement POC Reason for Consult: choking on water Call Completed: No Discharging clinician: Ginger Andrade Anticipated date of discharge: 11/21/17 - Constitutional Vitals: Temp Pulse Resp BP Pulse Ox 97.9 F 99 14 107/61 99 11/21/17 03:28 11/21/17 03:28 11/21/17 03:28 11/21/17 03:28 11/21/17 03:28 General appearance: Present: cachectic, cooperative, A&O X 1, mild distress, pleasant, no acute distress, answers questions appropriately - Head Head exam: Present: atraumatic, normal inspection, normocephalic - Eye Eye exam: Present: normal appearance, conjuntiva pink, sclera anicteric - Neck Neck exam general surgery: Present: normal inspection, supple, trachea midline. Absent: lymphadenopathy - Respiratory Respiratory exam: Present: CTAB. Absent: accessory muscle use, chest wall tenderness, decreased breath sounds, rales, respiratory distress, rhonchi, wheezes - Cardiovascular Cardiovascular exam: Present: RRR, +S1, +S2. Absent: diastolic murmur, gallop, rubs, systolic murmur - GI/Abdominal GI/Abdominal exam: Present: normal bowel sounds, soft. Absent: distended, hepatomegaly, tenderness - Extremities Exam Extremities exam: Present: normal capillary refill, normal inspection, warm, radial pulses palpable and symmetrical. Absent: calf tenderness, cyanotic, pedal edema, tenderness - Neurological Exam Neurological exam: Present: alert, altered, no focal deficits. Absent: oriented X3, facial droop, speech deficit - Skin Skin exam: Present: dry, intact, normal color, warm - Patient Status Disposition: Transfer SNF Condition: Fair Overall status at discharge: patient is progressing back to baseline - Discharge Instructions Follow Up With: Olaf Justice DO [Primary Care Provider] - - Diet and Activity Activity: as per physical therapy Diet: advance to your usual diet, other (Supplements as mentioned in note. Advanced soft diet with thin liquids, magic cup with lunch and dinner.)
[2017-11-21] MEDS: Sucralfate 1 GM TABLET PO SCH (09:35)
[2017-11-21] MEDS: rOPINIRole 1 MG TABLET PO SCH (09:35)
[2017-11-21] MEDS: Aspirin Enteric Coated 325 MG Tablet PO SCH (09:35)
[2017-11-21] MEDS: levoFLOXacin 750 MG TABLET PO SCH (09:35)
[2017-11-21] MEDS: Carbidopa/Levodopa 25/250 TABLET PO SCH (09:35)
[2017-11-21] MEDS: Miconazole w/zinc oxide&karaya 92 APPL/92 GM TUBE TP SCH (09:36)
[2017-11-21 11:14] VITALS: BP 96/53
--- NOTE | 2017-11-21 11:25 | Physician Discharge Referral ---
ExtendedCare Referral Info Transfer To: [facility] Provider in Charge after Transfer: PCP Institutional Level of Care: Skilled - Diagnosis (1) Acute metabolic encephalopathy Priority: Primary Status: Resolved (2) Generalized weakness Priority: Secondary Status: Acute (3) Bronchitis Priority: Secondary Status: Acute (4) CHF (congestive heart failure) Priority: Secondary Status: Chronic (5) Parkinson disease Priority: Secondary Status: Chronic (6) Sacral decubitus ulcer, stage II Priority: Secondary Status: Chronic (7) Hypoxia Priority: Secondary Status: Acute (8) Hypercalcemia Priority: Secondary Status: Resolved (9) Protein-calorie malnutrition, moderate Priority: Secondary Status: Acute (10) Acute respiratory failure Priority: Secondary Status: Acute (11) DVT prophylaxis Priority: Secondary Status: Acute Prognosis: Fair - Transfer Medications Home Medications: Aspirin/Calcium Carbonate/Mag [Aspirin Buffered 325 mg Tab] 325 mg PO DAILY 01/26 [History] Carbidopa/Levodopa [Carbidopa-Levodopa 25-250 Tab] 1 each PO BID 11/15/17 [ History] Gabapentin [Neurontin] 300 mg PO HS 11/15/17 [History] Omeprazole [PriLOSEC] 20 mg PO DAILY 11/15/17 [History] Ropinirole HCl [Requip] 2 mg PO TID 11/15/17 [History] Sucralfate [Carafate] 1 gm PO TID 11/15/17 [History] Tramadol HCl [Ultram] 50 mg PO QID PRN 11/15/17 [History] Isosorbide MONOnitrate (24 HR) [Imdur] 30 mg PO DAILY 11/16/17 [History] Metoprolol Succinate [Toprol Xl] 25 mg PO DAILY 11/16/17 [History] Mag Hydrox/Al Hydrox/Simeth [Maalox] 15 ml PO Q6HR PRN udc 11/21/17 [Rx] Miconazole w/zinc oxide&karaya [Antifungal Extra Thick] 1 appl TP BID tube [Rx] Allergies/Adverse Reactions: 3 Allergy/AdvReac Type Severity Reaction Status Date / Time Penicillins Allergy Hives Verified 11/15/17 00:50 - Respiratory Orders Oxygen / L per min (2 liters, titrate as needed to maintain sats > 92%) Smoking Cessation: Smoking cessation has been advised. For more information, call the [place] Tobacco Quit Line at 7-803-GUPS-NOW. - Lab Orders Lab Orders: U/A, Jonathan 17, CXR yearly - Ancillary Orders May use pressure relief devices daily prn, May go on YASMEEN w/family/respon republican w /meds at nurse discretion PRN, May consult with Dentist, Package Yarns Drying Machine Operator, Early Childhood Services Coordinator PRN - Advance Directives Code Status: DNR-Arrest - Mobility Orders Chair, Ambulate - Rehabiliation Orders Rehab Orders: Sternal Precautions, ROM Exercises, Evaluation for Physical Therapy, Evaluation for Occupational Therapy - Treatments May check for fecal impaction rectally daily PRN, Fleet enema rectally every other day PRN cleansing purposes (Advanced soft diet with thin liquids. Magic cup with lunch and dinner.) CERTIFICATION: I certify that the transfer of the above named patient to an Extended Care Facility is necessary for the continuing treatment of the diagnosis listed. The above information is true and accurate reflection of patient's current condition. Confidential - Redisclosure prohibited without a patient's written consent.
== END 2017-11-21 13:15 | DRG 70 ==
LOC: EMEROO 22:10 → 3NENU 22:10 → SUATTDRO 11-15 00:56 → 3NENU 11-15 02:45 → 3BNU 11-15 10:00
PROVIDERS: ADMIT Internal Medicine; ATTEND Internal Medicine